=== PATIENT | female | born 1995 | race Caucasian/White ===

== ENCOUNTER → 2016-12-15 | Outpatient (CLI) | payer OTHER ==
[~2016-12-15] MED LIST: CEPH500C PO; FERR50TA3 PO; MTR600X PO; ONDA4TAB9 PO; OXYC-57 PO; PRENTAB26 PO
[2016-12-15 14:46] LABS: HEMATOCRIT 34.1 % (37-47)
[2016-12-15 15:57] LABS: URINE APPEARANCE TURBID (CLEAR); URINE BILIRUBIN NEG (NEG); URINE COLOR YELLOW; URINE EPITHELIAL CELL AUTO >30 /lpf (0-5); URINE NITRITE NEG (NEG); URINE PH 7.5 (4.5-7.5); URINE SPECIFIC GRAVITY 1.015 (1.000-1.030); UROBILINOGEN NEG (NEG)
[2016-12-15 16:02] LABS: MANUAL MICROSCOPIC REQUIRED? NO; REVIEW REQ? NO
[2016-12-18 16:44] LABS: CYTOMEGALOVIRUS IGG AB <0.91
== END | disposition home or self-care (01) ==
LOC: C.LAB1850 13:55
PROVIDERS: ATTEND Obstetrics & Gynecology
DX: O16.3 Unspecified maternal hypertension, third trimester (principal); Z3A.00 Weeks of gestation of pregnancy not specified; O09.93 Supervision of high risk pregnancy, unspecified, third trimester

== ENCOUNTER 2017-01-09 20:57 | Outpatient (CLI) | payer OTHER ==
[~2017-01-09] VITALS: Ht 162.6 cm; Wt 115.0 kg
[~2017-01-09 20:57] MED LIST changes: -CEPH500C PO; -FERR50TA3 PO; -MTR600X PO; -OXYC-57 PO; -PRENTAB26 PO
[2017-01-09 23:09] VITALS: Ht 162.6 cm; Wt 115.0 kg
== END 2017-01-09 23:05 | disposition home or self-care (01) ==
LOC: C.OPB 20:57 → C.LD 20:58 → C.OPB 23:05
PROVIDERS: ATTEND Obstetrics & Gynecology
DX: O99.89 Other specified diseases and conditions complicating pregnancy, childbirth and the puerperium (principal); R10.9 Unspecified abdominal pain; O24.410 Gestational diabetes mellitus in pregnancy, diet controlled; O99.213 Obesity complicating pregnancy, third trimester; O99.343 Other mental disorders complicating pregnancy, third trimester; F31.9 Bipolar disorder, unspecified; Z3A.32 32 weeks gestation of pregnancy

== ENCOUNTER 2017-01-18 08:47 | Emergency (ER) | payer OTHER ==
[~2017-01-18] VITALS: Ht 162.6 cm; Wt 116.4 kg
[2017-01-18 08:59] VITALS: PULSE 83; TEMP 36.6; O2SAT 97; Ht 162.6 cm; Wt 116.4 kg
[2017-01-18] MEDS ORDERED: FERR50TA3 PO (09:16)
[2017-01-18] MEDS ORDERED: PRENTAB26 PO (09:16)
[2017-01-18 09:19] LABS: BASO % 0.3 %; BASO ABS # 0.03 K/uL (0-0.2); EOS % 1.6 %; HEMATOCRIT 32.3 % (37-47); IG% 0.8 %; LYMPH % 19.9 %; LYMPH ABS # 2.31 K/uL (1.2-3.4); MEAN CELL VOLUME 74.4 fL (80-100); MEAN CORPUSCULAR HEMOGLOBIN 24.7 pg (25-34); MEAN CORPUSCULAR HGB CONC 33.1 g/dl (32-36); MEAN PLATELET VOLUME 10.4 fL (7.4-10.4); MONO % 6.6 %; NEUT % 70.8 %; PLATELET COUNT 270 K/uL (130-400); RED BLOOD COUNT 4.34 M/uL (4.2-5.4); WHITE BLOOD COUNT 11.62 K/uL (4.8-10.8)
[2017-01-18 09:33] LABS: ALT/SGPT 11 U/L (12-78); BLOOD UREA NITROGEN 7 mg/dl (7-18); BUN/CREATININE RATIO 9.9 (10-20); CALCIUM 8.3 mg/dl (8.5-10.1); CARBON DIOXIDE 21 mmol/L (21-32); CHLORIDE 107 mmol/L (98-107); GLUCOSE 141 mg/dl (70-99); POTASSIUM 3.4 mmol/L (3.5-5.1); SODIUM 140 mmol/L (136-145)
[2017-01-18 09:36] LABS: ALKALINE PHOSPHATASE 113 U/L (45-117); AST/SGOT 12 U/L (15-37)
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
[2017-01-18 09:49] LABS: COMPLETE YES; LARGE PLATELETS 1+
[2017-01-18 09:55] VITALS: BP 146/84
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
== END 2017-01-18 09:56 | disposition home or self-care (01) ==
LOC: EDBD 08:47 → C.EDB 08:48
DX: O26.93 Pregnancy related conditions, unspecified, third trimester (principal); R10.13 Epigastric pain; V43.52XA Car driver injured in collision with other type car in traffic accident, initial encounter; D64.9 Anemia, unspecified; I10 Essential (primary) hypertension; K21.9 Gastro-esophageal reflux disease without esophagitis; F31.9 Bipolar disorder, unspecified; J45.909 Unspecified asthma, uncomplicated; F41.9 Anxiety disorder, unspecified; Z87.828 Personal history of other (healed) physical injury and trauma; Z86.19 Personal history of other infectious and parasitic diseases; Z98.890 Other specified postprocedural states; Z88.0 Allergy status to penicillin; Z91.018 Allergy to other foods; Z83.3 Family history of diabetes mellitus; Z82.49 Family history of ischemic heart disease and other diseases of the circulatory system

== ENCOUNTER 2017-01-18 09:58 | Outpatient (CLI) | payer OTHER ==
[~2017-01-18] VITALS: Ht 162.6 cm; Wt 117.0 kg
[~2017-01-18 09:58] MED LIST changes: +FERR50TA3 PO; +PRENTAB26 PO
[2017-01-18 10:54] VITALS: Ht 162.6 cm; Wt 117.0 kg
[2017-01-18] MEDS ORDERED: NURSING VERBAL MED ORDER ONE (11:45)
[2017-01-18] MEDS ORDERED: ACETAMINOPHEN 325 MG TAB PO ONE (12:00)
[2017-03-08] MEDS ORDERED: OXYC-57 PO (07:54)
[2017-03-08] MEDS ORDERED: MTR600X PO (07:54)
== END 2017-01-18 16:13 | disposition home or self-care (01) ==
LOC: C.OPB 09:58 → C.LD 09:58 → C.OPB 16:13
PROVIDERS: ATTEND Obstetrics & Gynecology
DX: Z34.83 Encounter for supervision of other normal pregnancy, third trimester (principal); V43.52XA Car driver injured in collision with other type car in traffic accident, initial encounter; O24.419 Gestational diabetes mellitus in pregnancy, unspecified control; O16.3 Unspecified maternal hypertension, third trimester; Z3A.32 32 weeks gestation of pregnancy

== ENCOUNTER 2017-02-07 15:14 | Outpatient (CLI) | payer OTHER ==
[~2017-02-07 15:14] MED LIST changes: -ONDA4TAB9 PO
== END 2017-02-07 17:20 | disposition home or self-care (01) ==
LOC: C.OPB 15:14 → C.LD 15:15 → C.OPB 17:20
PROVIDERS: ATTEND Obstetrics & Gynecology
DX: O99.713 Diseases of the skin and subcutaneous tissue complicating pregnancy, third trimester (principal); L03.311 Cellulitis of abdominal wall; S31.154A Open bite of abdominal wall, left lower quadrant without penetration into peritoneal cavity, initial encounter; X58.XXXA Exposure to other specified factors, initial encounter; O24.419 Gestational diabetes mellitus in pregnancy, unspecified control; O16.3 Unspecified maternal hypertension, third trimester; Z3A.36 36 weeks gestation of pregnancy

== ENCOUNTER → 2017-02-16 | Outpatient (CLI) | payer OTHER ==
[~2017-02-16] MED LIST changes: +CEPH500C PO; +CLIN300C2 PO; +LAMO1TAB21 PO; +LMC25 PO; +MTR600X PO; +OXYC-57 PO
== END | disposition home or self-care (01) ==
LOC: C.LABSPEC 13:16
PROVIDERS: ATTEND Obstetrics & Gynecology
DX: O24.410 Gestational diabetes mellitus in pregnancy, diet controlled (principal); Z3A.00 Weeks of gestation of pregnancy not specified

== ENCOUNTER → 2017-02-26 | Outpatient (CLI) | payer OTHER ==
[2017-02-26 15:31] LABS: URINE APPEARANCE CLOUDY (CLEAR); URINE BILIRUBIN NEG (NEG); URINE COLOR YELLOW; URINE EPITHELIAL CELL AUTO >30 /lpf (0-5); URINE NITRITE NEG (NEG); URINE PH 6.5 (4.5-7.5); URINE SPECIFIC GRAVITY 1.025 (1.000-1.030); UROBILINOGEN NEG (NEG)
[2017-02-26 15:43] LABS: MANUAL MICROSCOPIC REQUIRED? NO; REVIEW REQ? NO
== END | disposition home or self-care (01) ==
LOC: C.LABSPEC 14:51
PROVIDERS: ATTEND Obstetrics & Gynecology
DX: O12.10 Gestational proteinuria, unspecified trimester (principal); Z3A.00 Weeks of gestation of pregnancy not specified

== ENCOUNTER 2017-03-01 16:18 | Outpatient (CLI) | payer OTHER ==
[~2017-03-01 16:18] MED LIST changes: -CEPH500C PO; -CLIN300C2 PO; -LAMO1TAB21 PO; -LMC25 PO; -MTR600X PO; -OXYC-57 PO
== END 2017-03-01 17:44 | disposition home or self-care (01) ==
LOC: C.OPB 16:18 → C.LD 16:27 → C.OPB 17:44
PROVIDERS: ATTEND Obstetrics & Gynecology
DX: O26.893 Other specified pregnancy related conditions, third trimester (principal); Z3A.22 22 weeks gestation of pregnancy

== ENCOUNTER 2017-03-04 15:04 | Inpatient (IN) | payer OTHER ==
[~2017-03-04] VITALS: Ht 162.6 cm; Wt 121.4 kg
[2017-03-04] MEDS ORDERED: LACTATED RINGER'S 1000ML 1,000 ML IV PRN (15:39)
[2017-03-04] MEDS ORDERED: SODIUM CHLORIDE 0.9% 1000ML 1,000 ML IV SCH (15:51)
[2017-03-04] MEDS ORDERED: DEXTROSE 50% 50 ML SYR IV PRN (16:00)
[2017-03-04 16:01] LABS: MEAN CELL VOLUME 71.6 fL (80-100); MEAN CORPUSCULAR HEMOGLOBIN 23.4 pg (25-34); MEAN CORPUSCULAR HGB CONC 32.6 g/dl (32-36); MEAN PLATELET VOLUME 10.7 fL (7.4-10.4); PLATELET COUNT 272 K/uL (130-400); RED BLOOD COUNT 4.75 M/uL (4.2-5.4); WHITE BLOOD COUNT 13.35 K/uL (4.8-10.8)
[2017-03-04 16:42] VITALS: Ht 162.6 cm; Wt 121.4 kg
[2017-03-04] MEDS ORDERED: LACTATED RINGER'S 1000ML 500 ML IV PRN ×2 (19:09→22:06)
[2017-03-04] MEDS ORDERED: OXYTOCIN 30 UNITS/500ML NSS IV PRN (19:15)
[2017-03-04] MEDS: LACTATED RINGER'S 1000ML 1,000 ML IV SCH ×2 (19:22→21:35)
[2017-03-04] MEDS: DEXTROSE 5% 1000ML 1,000 ML IV SCH (19:22)
[2017-03-04] MEDS: INSULIN REGULAR 250 UNITS in SODIUM CHLORIDE 0.9% 250ML 250 ML IV SCH ×2 (19:30→20:29)
[2017-03-04] MEDS ORDERED: FENTANYL 2MCG/ML ROPIV 1.25MG/ML 100ML BAG EPI ONE (20:57)
[2017-03-04] MEDS ORDERED: BUPIVACAINE 0.25% 30 ML VIAL ONE (20:57)
[2017-03-04] MEDS ORDERED: EpHEDrine SULFATE INJ 50 MG/ML AMP ONE (20:57)
[2017-03-04] MEDS ORDERED: FENTANYL CITRATE INJ 50 MCG/1 ML 2 ML VIAL ONE (20:58)
[2017-03-04] MEDS ORDERED: NALOXONE HCL INJ 1 MG in SODIUM CHLORIDE 0.9% 1000ML 1,000 ML IV PRN (22:06)
[2017-03-04] MEDS ORDERED: NALOXONE HCL INJ 0.4 MG/1 ML VIAL/CARP IV PRN (22:15)
[2017-03-04] MEDS ORDERED: NALBUPHINE HCL INJ 10 MG/ML AMP IV PRN (22:15)
[2017-03-04] MEDS ORDERED: ONDANSETRON INJ 2 MG/ML 2 ML VIAL IV PRN (22:15)
[2017-03-04] MEDS ORDERED: DiphenhydrAMINE HCL 50 MG/ML VIAL IV PRN (22:15)
[2017-03-04] MEDS ORDERED: PROMETHAZINE HCL INJ 6.25 MG in SODIUM CHLORIDE 0.9% 50ML 50 ML IV PRN (22:15)
[2017-03-04] MEDS ORDERED: EpHEDrine SULFATE INJ 50 MG/ML AMP IV PRN (22:15)
[2017-03-05] VITALS (7 sets, daily range): BP systolic 116–136; BP diastolic 60–83; PULSE 79–89; TEMP 36.7–37; O2SAT 96–98
[2017-03-05] MEDS: LACTATED RINGER'S 1000ML 1,000 ML IV SCH ×2 (01:59→07:05)
[2017-03-05] MEDS: DEXTROSE 5% 1000ML 1,000 ML IV SCH (05:07)
[2017-03-05] MEDS: FENTANYL 2MCG/ML ROPIV 1.25MG/ML 100ML BAG EPI PRN ×2 (06:23→07:06)
[2017-03-05] MEDS ORDERED: BUPIVACAINE 0.25% 30 ML VIAL ONE (11:45)
[2017-03-05] MEDS ORDERED: FENTANYL CITRATE INJ 50 MCG/1 ML 2 ML VIAL ONE (11:49)
[2017-03-05] MEDS ORDERED: LACTATED RINGER'S 1000ML 1,000 ML IV SCH (12:56)
[2017-03-05] MEDS ORDERED: CITRIC ACID/SODIUM CITRATE 15 ML UDC PO ONE (13:00)
[2017-03-05] MEDS ORDERED: CITRIC ACID/SODIUM CITRATE 15 ML UDC ONE (13:03)
[2017-03-05] MEDS ORDERED: CLINDAMYCIN IV 900 MG in DEXTROSE 5% ADD-VANTAGE 100ML 100 ML IV SCH (13:15)
--- NOTE | 2017-03-05 13:46 | HISTORY & PHYSICAL EXAMINATION ---
DATE OF ADMISSION: 03/04/2017 PREOPERATIVE DIAGNOSES: 1. Intrauterine at 39 and 6/7 weeks. 2. Insulin requiring gestational diabetes. 3. Chronic hypertension. 4. Morbid obesity. HISTORY OF PRESENT ILLNESS: The patient is a 21-year-old 2, para 1-0-0-1 with an EDC of 03/06/2017 who presented to labor and delivery for a reassuring, but nonreactive NST at 39 and 5/7 weeks. When she presented to labor and delivery, it was decided that we would proceed with induction of labor. She notes good movement, no contractions, no leakage of fluid, no vaginal bleeding. She denies signs and symptoms of preeclampsia. The has been complicated by insulin controlled gestational diabetes. She has had fairly good control. Last ultrasound at 36 weeks showed a baby that is approximately 7 pounds 2 ounces. Estimated weight 63rd percentile. AC I believe was 59th percentile. She also has chronic hypertension for which she is on no medications. Testing has been reassuring. The patient was admitted. She underwent a Carrion bulb for cervical ripening and then progressed with Pitocin augmentation. The following morning at 6:00 a.m. she was 6 cm dilated and still quite high, but she was ruptured nonetheless for clear fluid. Baby's strip had been category 1 up until that point but after rupture of membranes the patient had variables/early decels with most contractions. She continued to keep moderate variability and had positive scalp stim. The Pitocin had been turned off after the rupture of membranes and the variables, but with be reassuring category 2 strip the Pitocin was restarted. Unfortunately, every time we would get to any kind of significant contraction in the 40-50 MVU range the baby had more deep variables. When we got to MVU's of approximately 140-150 at Pitocin of 4 the baby started to have deep variables to the 60s with more prolonged return to baseline. The patient had an FSE placed and IUPC placed at 8:00 a.m. in the morning when I took over the care of the patient and she did make slow progression but really the baby did not descend into the pelvis past a -3 station. For the last 2 hours plus, she remained a rim and -3 station. When the Pitocin is off the heart tones returned to the 130s-140s with moderate variability, small accels, but when we get a spontaneous contraction that is more than about 30 MVUs we have variable. 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 This was a vaginal delivery but was complicated by pretty severe shoulder dystocia. The baby was 7 pounds 9 ounces at delivery. Shoulder dystocia was resolved with suprapubic then Ceasar and lying the patient flat. I was at that delivery, as it happened, and I tried to reduce and do some screw maneuvers, but was unable to get my hand into the vagina because of the long and tight space of the vagina. This baby is likely bigger than that baby. She has had no abnormal Pap smears and no sexually transmitted diseases. ALLERGIES: PENICILLIN CAUSES HIVES AND SWELLING. MEDICATIONS: Insulin, vitamins and iron. PAST MEDICAL HISTORY: The patient has chronic hypertension on no meds, past history of gestational diabetes, history of bipolar disorder, not on current meds, history of anemia, history of mild asthma, chickenpox. PAST SURGICAL HISTORY: The patient had kidney surgery at age 3 on her left kidney, tonsillectomy, wisdom teeth. SOCIAL HISTORY: The patient denies tobacco, alcohol or drug use. She lives with the father of the baby and her daughter. This baby is a boy. PHYSICAL EXAMINATION: GENERAL: This is a well-developed, well-nourished, obese white female. She is comfortable lying in the bed with her epidural. VITAL SIGNS: Her blood pressures have been running 130s to 140s/80s. Her weight is 267 pounds. NECK: Supple without thyromegaly or lymphadenopathy. CHEST: Clear to auscultation bilaterally. CARDIOVASCULAR: Regular rate and rhythm. ABDOMEN: Obese and gravid. She has a fairly large pannus. There is an incision on the left flank. There is an erythematous but bite on her left lower quadrant. EXTREMITIES: Show trace to +1 edema. CERVIX EXAMINATION: She is rim, 100%, -3 station. Tocodynamometer shows her marcelino spontaneously every 2-3 minutes. EFM baby is in the 140s with moderate variability, small accels, variable decels with some of the larger contractions based on IUPC now. Baby has always had scalp stim. ASSESSMENT: This is a 21-year-old 2, para 1-0-0-1 at 39-6/7 weeks who is being induced for chronic hypertension and insulin requiring gestational diabetes. She has progressed slowly to a rim, but over the last 2 hours has not been able to reduce the rim. The station has not progressed past -3. Every time we tried to augment contractions with Pitocin the baby has variables that deepen as we get closer and closer to attempting adequate labor. Therefore, I do not know that I am going to be able to get her adequate in order to call her technically failure to progress. However, I am very concerned that this baby has not descended in really the 7 hours that I have been monitoring the baby. The baby continues to have a category 2 strip, but is very reassuring with moderate variability and positive scalp stim. I discussed the options with Cheko and her which would include trying Pitocin again with knowing that if the baby does not tolerate labor this time we would proceed with section, also realizing that if the baby had a terminal bradycardia she would be a very difficult stat given her size. We could proceed with delivery, right now for what I likely suspect is failure to progress. I do suspect this baby is probably on the 8-9 pounds size. Given the history of the shoulder dystocia and difficult delivering a 7 pound 9 ounce baby I have concern that this baby is likely too big to fit out of the pelvis and all of this is a response of the baby and the lack of descent in the pelvis are signed that this is what is going on and that we could now while the baby is still reassuring and we could do it under controlled situation. After discussing the risks, benefits and side effects of all of these, they have decided to proceed with a controlled section delivery. I agree with this course of action. The risks of the surgery were discussed with the patient including risk of anesthesia, bleeding requiring transfusion, infection, poor wound healing, damage to surrounding structures including bowel, bladder, vessels, nerves and ureters with need for further surgery, hospitalization or intervention. Discussed the possibility of injury to baby. Discussed the other options of surgery including heart attack, blood clot, stroke or . Consent was reviewed and signed. Questions were asked and answered and will proceed with section. JESENIA
[2017-03-05] MEDS ORDERED: ONDANSETRON INJ 2 MG/ML 2 ML VIAL ONE (13:49)
[2017-03-05] MEDS ORDERED: LIDOCAINE/EPINEPHRINE 2% 1:200,000 20 ML SDV ONE (13:49)
[2017-03-05] MEDS ORDERED: OXYTOCIN INJ 10 UNITS/ML VIAL ONE ×2 (13:49→13:57)
[2017-03-05] MEDS ORDERED: PHENYLEPHRINE 100MCG/ML 5ML SYR ONE (13:50)
[2017-03-05] MEDS ORDERED: MISOPROSTOL 200 MCG TAB ONE (14:02)
[2017-03-05] MEDS ORDERED: MoRPHine SULFATE PF 1 MG/ML 10 ML AMP/VIAL ONE (14:11)
--- NOTE | 2017-03-05 14:28 | [facility] Post Operative Brief Note ---
Immediate Operative Summary Operative Date March 05, 2017. Pre-Operative Diagnosis 39+ wks intrauterine , insulin controlled gestational diabetes mellitus, gestational HTN, failure to progress, arrest of descent Post-Operative Diagnosis 39+ wks intrauterine , insulin controlled gestational diabetes mellitusgestational HTN, failure to progress, arrest of descent Procedure(s) Performed Primary low transverse caesarean section via a vertical skin incision for failure to progress, arrest of descent for living male child at [address] Watson Criminalist Surgeon(s) Dr. Buenrostro Estimated Blood Loss 900ml Findings Delivered a viable male infant, APGARS 9,9. Weight 9 lbs 0oz. Normal uterus, fallopian tubes and ovaries bilaterally Specimens Placenta-hold arterial and venous cord gases cord blood Drains perez to gravity Anesthesia spinal Complication(s) None Disposition L&D
[2017-03-05] MEDS ORDERED: LANOLIN OINT EXT PRN ×2 (14:30)
[2017-03-05] MEDS ORDERED: BENZOCAINE 20% AER SPR 82.5 GM CAN EXT PRN (14:30)
[2017-03-05] MEDS ORDERED: SENNA 8.6 MG TAB PO PRN (14:30)
[2017-03-05] MEDS ORDERED: DIPHTHERIA/TETANUS/PERTUSSIS 0.5 ML SYR/VIAL IM. ONE (14:30)
[2017-03-05] MEDS ORDERED: SUPERCREAM 0.870 % 15GM JAR EXT PRN (14:30)
[2017-03-05] MEDS ORDERED: HYDROCORTISONE ACETATE 25 MG SUPP PR PRN (14:30)
--- NOTE | 2017-03-05 14:40 | Anesthesiology Progress Note ---
Anesthesia Post Op Note Date & Time March 05, 2017 at 14:40 Vital Signs Pain Intensity: 10.0 Notes Mental Status: alert / awake / arousable, participated in evaluation Pt Amnestic to Procedure: Yes Nausea / Vomiting: adequately controlled Pain: adequately controlled Airway Patency, RR, SpO2: stable & adequate BP & HR: stable & adequate Hydration State: stable & adequate Neuraxial Anesthesia: was administered, sensory block is resolving Anesthetic Complications: no major complications apparent
--- NOTE | 2017-03-05 14:40 | Anesthesia Procedure Note ---
Anesthesia Epidural Removal Nt Date & Time March 05, 2017 at 14:40 Vital Signs Pain Intensity: 10.0 Notes Mental Status: alert / awake / arousable, participated in evaluation Nausea / Vomiting: adequately controlled Pain: adequately controlled Airway Patency, RR, SpO2: stable & adequate BP & HR: stable & adequate Hydration State: stable & adequate Neuraxial Anesthesia: was administered Anesthetic Complications: no major complications apparent, pt satisfied with anesthetic care Epidural: removed without complications, with tip intact
[2017-03-05] MEDS ORDERED: SODIUM CHLORIDE 0.9% 1000ML 1,000 ML IV PRN (14:41)
[2017-03-05] MEDS ORDERED: NALOXONE HCL INJ 1 MG in SODIUM CHLORIDE 0.9% 1000ML 1,000 ML IV PRN (14:41)
[2017-03-05] MEDS ORDERED: NALOXONE HCL INJ 0.08 MG in SYRINGE 1.8 ML IV PRN (14:41)
[2017-03-05] MEDS ORDERED: LACTATED RINGER'S 1000ML 500 ML IV PRN (14:41)
[2017-03-05] MEDS ORDERED: NALOXONE HCL 0.4 MG/1 ML VIAL/CARP IV PRN (14:45)
[2017-03-05] MEDS ORDERED: ONDANSETRON INJ 2 MG/ML 2 ML VIAL IV PRN (14:45)
[2017-03-05] MEDS ORDERED: KETOROLAC TROMETHAMINE 30 MG/ML VIAL IV. PRN (14:45)
[2017-03-05] MEDS ORDERED: PROMETHAZINE HCL INJ 12.5 MG in SODIUM CHLORIDE 0.9% 50ML 50 ML IV PRN (14:45)
[2017-03-05] MEDS ORDERED: MoRPHine SULFATE PF 1 MG/ML 10 ML AMP/VIAL EPI ONE (14:45)
[2017-03-05] MEDS ORDERED: NO NARCOTICS OR SEDATIVES SCH (14:45)
[2017-03-05] MEDS ORDERED: EpHEDrine SULFATE INJ 50 MG/ML AMP IV PRN (14:45)
[2017-03-05] MEDS ORDERED: MEPERIDINE HCL 25 MG/ML CARP IV PRN (14:45)
[2017-03-05] MEDS ORDERED: MoRPHine SULFATE 2 MG/ML CARP IV PRN (14:45)
[2017-03-05] MEDS ORDERED: DiphenhydrAMINE HCL 50 MG/ML VIAL IV PRN (14:45)
[2017-03-05] MEDS ORDERED: NALBUPHINE HCL INJ 10 MG/ML AMP IV PRN (14:45)
--- NOTE | 2017-03-05 16:32 | OPERATIVE REPORT ---
DATE OF OPERATION: 03/05/2017 PREOPERATIVE DIAGNOSES: 1. Intrauterine at 39 and 6/7 weeks. 2. Insulin requiring gestational diabetes. 3. Chronic hypertension. 4. Failure to progress and descend. POSTOPERATIVE DIAGNOSES: Same. PROCEDURE: Primary low transverse section via vertical midline incision. SURGEON: Dr. Watson. ELECTRICAL MACHINE BUILDER: Valencia Buenrostro DO, and Larry Tse, PGY1. ANESTHESIA: Epidural. ESTIMATED BLOOD LOSS: 900 mL. FLUIDS: 1200 mL. URINE OUTPUT: 200 mL of red-tinged urine draining from the bladder at the end of the procedure. INDICATIONS: Cheko is a 2, para 1-0-0-1 who presented to labor and delivery at 39 and 5/7 weeks with a reassuring, but nonreactive NST. Decision was made to induce this patient. She underwent a Carrion bulb and progressed to 6 with Pitocin augmentation, had an amniotomy. The baby started having variables after amniotomy with contractions, but continued to have adequate moderate variability and positive scalp stim. She had an IUPC and a FSE placed and she very slowly progressed to rim and -3 station. The baby really never descended into the pelvis past -3 station. She was rim for 2 hours. Every time we tried to get the Pitocin up to adequate contractions the fetus had deep variables to the 60s. Given the lack of descent and the lack of progress over the last 2 hours of evaluation, I was concerned that the baby was not going to fit through the pelvis given she had an issue delivering a 7 pound, 9 ounce baby in her last delivery. Therefore, I discussed the possibility of delivery and she decided to proceed. FINDINGS: Viable male infant in right occiput posterior presentation. There was significant caput. There was a nuchal cord x1. The cord itself was somewhat short. Apgars were 9 and 9. Weight was 9 pounds. Uterus, tubes, and ovaries were normal bilaterally. COMPLICATIONS: None. DRAINS: Carrion. DISPOSITION: To recovery room in stable condition. DESCRIPTION OF PROCEDURE: The patient was taken to the operating room where she was identified verbally and by bracelet. She was placed in the dorsal supine position with a leftward tilt on the operating table. A Carrion catheter had been placed previously. Her epidural was dosed. She was prepped and draped in normal sterile fashion. Her anesthetic was tested and found to be adequate. A timeout was held identifying correct patient and procedure, preoperative antibiotic. A vertical midline incision was made with a knife just below the umbilicus. This was taken down to the fascia with Bovie electrocautery. Bleeding was attended to with Bovie electrocautery. The fascia was incised in the midline and taken superiorly and inferiorly with good visualization of the bladder. The muscles already had some partial separation in the midline. The peritoneum was identified and entered bluntly. The incision was taken superiorly and inferiorly with good visualization of the bladder. The incision was stretched. An Esteban self-retaining retractor was placed into the incision. The bladder flap was created by grasping the vesicouterine peritoneum, entering with scissors and taking out laterally. A hysterotomy incision was scored with the knife. It was entered with a snap. The incision was stretched with the wood grinder operator's fingers. The head was then delivered atraumatically through the hysterotomy incision. The nose and mouth were bulb suctioned. There was a nuchal cord x1. The rest of the baby was then delivered without difficulty. The nose and mouth were again bulb suctioned. The cord was clamped and cut and the infant was handed off to waiting oil and gas superintendent for drying and attention. Cord blood and segment were obtained. The placenta was expressed. Uterus was manually cleared of debris with a moistened laparotomy sponge. The hysterotomy incision was identified, was clamped and it was reapproximated, we first started on the left side coming to the midline and then started on the right, left and right apex returning to the midline. A second imbricating layer was then placed. Two [id number] sutures were needed on the left side for hemostasis and then hemostasis was noted to be pretty good. The uterus was reanteriorized. The incision was then again inspected and really found to be hemostatic. Some Gelfoam was placed over on the left side of the incision as it was slightly oozy in that area, but there were no obvious bleeders. The fascia was then reapproximated in the midline with #1 PDS starting cephalad and caudad and meeting in the middle. Subcuticular tissue was irrigated with warm normal saline. The subcuticular tissue was reapproximated with 2-0 plain gut horizontal mattress sutures. The skin was then closed with dale. All sponge, lap and needle counts were correct x2. The patient tolerated the procedure well. She was taken to the recovery room in stable condition. She was transferred to the bed. Her uterus was expressed of some clot but was then found to be firm. I attest to the content of the Intraoperative Record and any orders documented therein. Any exceptions are noted below. MTDD
[2017-03-05] MEDS: OXYTOCIN INJ 20 UNITS in LACTATED RINGER'S 1000ML 1,000 ML IV SCH (17:33)
[2017-03-05] MEDS: DOCUSATE SODIUM 100 MG CAP PO SCH (19:58)
[2017-03-06] VITALS (12 sets, daily range): BP systolic 121–143; BP diastolic 80–86; PULSE 78–103; TEMP 36.6–36.9; O2SAT 18–98
[2017-03-06] MEDS: OXYTOCIN INJ 20 UNITS in LACTATED RINGER'S 1000ML 1,000 ML IV SCH (02:00)
--- NOTE | 2017-03-06 07:16 | Progress Note ---
Subjective March 06, 2017. Subjective conversation w/ patient, physical exam, chart review, lab review Voiding: perez catheter in place Diet Tolerance: Regular Diet Lochia: Moderate Objective Vital Signs Date Time Temp Pulse Resp B/P Pulse Ox O2 Delivery O2 Flow Rate FiO2 03/06/17 06:27 18 97 03/06/17 05:30 18 96 03/06/17 04:30 16 98 03/06/17 03:45 36.9 78 18 121/80 96 Room Air 03/06/17 03:30 16 96 03/06/17 02:30 18 94 03/06/17 01:30 18 96 03/06/17 00:30 18 96 03/05/17 23:30 36.8 18 124/83 96 Room Air 03/05/17 23:30 96 Room Air 03/05/17 23:30 18 96 03/05/17 22:00 20 97 03/05/17 21:00 20 97 03/05/17 20:20 37.0 89 20 136/83 Room Air 03/05/17 20:00 20 98 03/05/17 19:00 79 20 116/81 97 Room Air 03/05/17 19:00 20 97 03/05/17 18:00 36.7 79 16 122/60 96 Room Air 03/05/17 18:00 16 97 03/05/17 18:00 Room Air Physical Exam General Appearance: WELL-APPEARING Abdomen: non tender Fundus: Firm Extremities: no calf tenderness Laboratory Results Last 24 Hours Test 03/05/17 07:36 03/05/17 08:33 03/05/17 10:37 03/05/17 11:19 Bedside Glucose 93 mg/dl 94 mg/dl 76 mg/dl 74 mg/dl Test 03/05/17 11:36 03/05/17 12:36 03/06/17 06:20 Bedside Glucose 76 mg/dl 79 mg/dl Assessment and Plan Post-Op Day#: 1 Continue Routine Care: Feels well. Ambulate, remove perez. Switch to PO pain meds. Cont current care. BLANCA
[2017-03-06] MEDS ORDERED: DiphenhydrAMINE HCL 50 MG/ML VIAL IV PRN (07:45)
[2017-03-06] MEDS ORDERED: DC INTRASPINAL MORPHINE SCH (07:45)
[2017-03-06] MEDS ORDERED: ONDANSETRON INJ 2 MG/ML 2 ML VIAL IV PRN (07:46)
[2017-03-06] MEDS ORDERED: KETOROLAC TROMETHAMINE 30 MG/ML VIAL IV. PRN (07:46)
[2017-03-06] MEDS ORDERED: OXYCODONE/ACETAMINOPHEN 5-325 TAB PO PRN (07:46)
[2017-03-06] MEDS: PRENATAL VITAMIN TAB PO SCH (07:59)
[2017-03-06] MEDS: DOCUSATE SODIUM 100 MG CAP PO SCH ×2 (07:59→20:27)
[2017-03-06] MEDS: FERROUS SULFATE 325 MG TAB PO SCH (08:00)
[2017-03-06] MEDS ORDERED: PRENATAL VITAMIN TAB PO SCH (08:00)
[2017-03-06] MEDS ORDERED: FERROUS SULFATE 325 MG TAB PO SCH (08:00)
[2017-03-06 08:02] LABS: HEMATOCRIT 21.2 % (37-47); MEAN CELL VOLUME 72.6 fL (80-100); MEAN PLATELET VOLUME 11.1 fL (7.4-10.4); PLATELET COUNT 241 K/uL (130-400); RED BLOOD COUNT 2.92 M/uL (4.2-5.4); WHITE BLOOD COUNT 19.36 K/uL (4.8-10.8)
[2017-03-06 08:09] LABS: BASO % 0.2 %; BASO ABS # 0.03 K/uL (0-0.2); COMPLETE YES; EOS % 0.3 %; IG% 0.4 %; LYMPH % 18.8 %; LYMPH ABS # 3.64 K/uL (1.2-3.4); MONO % 8.8 %; NEUT % 71.5 %
[2017-03-06] MEDS: IBUPROFEN 600 MG TAB PO PRN ×2 (13:14→18:19)
[2017-03-06] MEDS: OXYCODONE/ACETAMINOPHEN 5-325 TAB PO PRN (19:05)
[2017-03-06] MEDS ORDERED: BISACODYL 5 MG TABEC PO ONE (22:00)
[2017-03-07] MEDS: IBUPROFEN 600 MG TAB PO PRN ×5 (00:21→21:04)
[2017-03-07] MEDS: OXYCODONE/ACETAMINOPHEN 5-325 TAB PO PRN ×2 (04:45→17:27)
[2017-03-07 06:58] VITALS: BP 128/83; PULSE 76; TEMP 36.7
[2017-03-07 07:17] LABS: HEMATOCRIT 20.1 % (37-47)
--- NOTE | 2017-03-07 07:47 | Progress Note ---
Subjective March 07, 2017. Subjective conversation w/ patient, physical exam, lab review Ambulation: ambulating normally Voiding: no voiding problems Passing Gas: Yes Diet Tolerance: Regular Diet Lochia: Small Feeding Type: Bottle Feeding Pain: CONTROLLED WITH ORAL PAIN MEDS Comment: OTHER THAN FEELING TIRED, THE PATIENT FEELS WELL. PAIN CONTROLLED. TOOK A SHOWER WITHOUT INCIDENT. NOTES NO LIGHTHEADEDNESS OR DIZZINESS WITH STANDING OR WALKING. Objective Vital Signs Date Time Temp Pulse Resp B/P Pulse Ox O2 Delivery O2 Flow Rate FiO2 03/07/17 06:58 36.7 76 20 128/83 Room Air 03/06/17 23:30 36.8 97 20 143/80 96 Room Air 03/06/17 23:30 96 Room Air 03/06/17 15:30 36.6 103 20 137/86 Room Air 03/06/17 15:30 Room Air 03/06/17 13:00 Room Air 03/06/17 13:00 36.8 102 18 127/82 Room Air 03/06/17 07:45 95 Room Air 03/06/17 07:45 36.9 96 18 129/82 Room Air 03/06/17 07:45 18 95 Physical Exam General Appearance: WELL-APPEARING, WD/WN, NO APPARENT DISTRESS Respiratory/Chest: lungs clear, normal breath sounds Cardiovascular: regular rate, rhythm Abdomen: normal bowel sounds, soft, + tenderness (APPROPRIATE FOR POST OP) Fundus: Firm, Tender (APPROPRIATE FOR POSTOP ), Relation to Umbilicus (ABOUT AT U, DIFFICULT EXAM.) Incision Description: Clean, Dry & Intact (SLIGHT BRUISING AT THE CAUDAD EDGE) Extremities: non-tender, no pedal edema Laboratory Results Last 24 Hours Test 03/07/17 06:17 Hemoglobin 6.3 g/dL Hematocrit 20.1 % Assessment and Plan Post-Op Day#: 2 Continue Routine Care: DOING VERY WELL. WILL HOLD OFF ON TRANSFUSION FOR NOW SHE IS ASYMPTOMATIC FROM HER HGB OF 6.3. IF SHE BECOMES SYMPTOMATIC TODAY, WILL HAVE TO CONSIDER. DISCUSSED IN DETAIL WITH THE PATIENT.
[2017-03-07] MEDS: PRENATAL VITAMIN TAB PO SCH (08:02)
[2017-03-07] MEDS: DOCUSATE SODIUM 100 MG CAP PO SCH ×2 (08:02→20:03)
[2017-03-07] MEDS: FERROUS SULFATE 325 MG TAB PO SCH (08:02)
[2017-03-07 15:30] VITALS: BP 148/84; PULSE 90; TEMP 36.8
[2017-03-07 19:00] VITALS: BP 139/87; PULSE 99; TEMP 36.7
[2017-03-07 23:20] VITALS: BP 149/87; PULSE 88; TEMP 36.5; O2SAT 99
[2017-03-08] MEDS: IBUPROFEN 600 MG TAB PO PRN ×2 (01:46→07:10)
--- NOTE | 2017-03-08 06:55 | Progress Note ---
Subjective March 08, 2017. Subjective conversation w/ patient, physical exam, lab review Ambulation: ambulating normally Voiding: no voiding problems Passing Gas: Yes Diet Tolerance: Regular Diet Lochia: Moderate Feeding Type: Bottle Feeding Pain: improves with pain medication Comment: Patient was seen at the bedside. No acute event overnight. Review of Systems Constitutional: No fever Respiratory: No cough, No shortness of breath Cardiac: No chest pain Breast: No breast lump Abdomen: No nausea, No pain, No vomiting Female : No dysuria, No urinary frequency Denies headache or dizziness. Patient states that she was able to walk around without any problems. Objective Vital Signs Date Time Temp Pulse Resp B/P Pulse Ox O2 Delivery O2 Flow Rate FiO2 03/07/17 23:20 99 Room Air 03/07/17 23:20 36.5 88 20 149/87 99 Room Air 03/07/17 19:00 36.7 99 20 139/87 Room Air 03/07/17 15:30 Room Air 03/07/17 15:30 36.8 90 20 148/84 Room Air 03/07/17 08:00 Room Air 03/07/17 06:58 36.7 76 20 128/83 Room Air Physical Exam General Appearance: WELL-APPEARING, WD/WN, NO APPARENT DISTRESS, obese Respiratory/Chest: chest non-tender, lungs clear, normal breath sounds, no respiratory distress Cardiovascular: regular rate, rhythm Abdomen: normal bowel sounds, non tender, soft Fundus: Firm, Tender (appropariate for postop), Relation to Umbilicus (at the U , difficult to assess) Extremities: non-tender, no calf tenderness, + pedal edema (trace b/l lower ext ) Medications Current Inpatient Medications Medications (Trade) Dose Ordered Sig/Vince Route Start Time Stop Time Status Last Admin Dose Admin Prenat Multivit/ [place]/Iron/Folic Ac ( Vitamin Tab) 1 tab DAILY PO 03/06/17 08:00 04/05/17 07:59 03/07/17 08:02 1 TAB Ketorolac Tromethamine (Toradol Inj) 30 mg Q6H PRN IV. 03/06/17 07:46 03/10/17 14:29 Oxycodone/ Acetaminophen (Percocet 5-325mg Tab) 1 tab Q4H PRN PO 03/06/17 07:46 03/20/17 07:45 03/07/17 17:27 1 TAB Oxycodone/ Acetaminophen (Percocet 5-325mg Tab) 2 tab Q4H PRN PO 03/06/17 07:46 03/20/17 07:45 Ibuprofen (Motrin Tab) 600 mg Q4H PRN PO 03/05/17 14:30 04/04/17 14:29 03/08/17 01:46 600 MG Ondansetron HCl (Zofran Inj) 4 mg Q4H PRN IV 03/06/17 07:46 04/05/17 07:45 Docusate Sodium (coLACE CAP) 100 mg BID PO 03/05/17 20:00 04/04/17 19:59 03/07/17 20:03 100 MG Cocaine HCl (Supercream 0.870% Cr) BID PRN EXT 03/05/17 14:30 03/19/17 14:29 Lanolin (Lanolin Oint) PRN PRN EXT 03/05/17 14:30 04/04/17 14:29 Hydrocortisone Acetate (Anusol Hc Supp) 25 mg BID PRN [place] 03/05/17 14:30 04/04/17 14:29 Benzocaine (Dermoplast Aero Spr) 1 appln PRN PRN EXT 03/05/17 14:30 04/04/17 14:29 Diphenhydramine HCl (Benadryl Cap) 25 mg QID PRN PO 03/06/17 07:46 04/05/17 07:45 Diphenhydramine HCl (Benadryl Inj) 25 mg QID PRN IV 03/06/17 07:45 04/05/17 07:44 Senna (Senokot Tab) 17.2 mg HS PRN PO 03/05/17 14:30 04/04/17 14:29 03/07/17 20:03 17.2 MG Ferrous Sulfate (Feosol Tab) 325 mg DAILY PO 03/06/17 08:00 04/05/17 07:59 03/07/17 08:02 325 MG Assessment and Plan Post-Op Day#: 3 Continue Routine Care: A/P: This is a 21 y/o female, , s/p . She is ambulating and clinically stable to discharge. Hgb is low; however, patient is asymptomatic. Follow up in clinic in 4 days for dale removal and BP checkup. - Vital signs are reviewed, Tmax 36.7 and BP 149/87 - Last Hgb 6.3 - Blood type A+, GBS neg, Rubella Immune - No signs of depression. - Routine care - Discussed resting, feeding, pain control, mastitis, control, follow up in 6 weeks and reasons to call sooner, if necessary. - Continue with pain medication as needed, and continue vitamins. - Encourage breast feeding and educate about breast feeding - Patient understands and keen for home. - Plan to discharge home Resident Physician Supervision Note: I interviewed and examined the patient. Discussed with Dr. Tse and agree with findings and plan as documented in the note. Any exceptions or clarifications are listed here: Patient is asymptomatic from her h/h. Plan d/c home. Precautions given. Return to the office on Wednesday for staple removal. Documented By: Marina Watson
--- NOTE | 2017-03-08 06:57 | Discharge Instructions ---
Discharge Instructions Date of Service March 08, 2017. Admission Reason for Admission: Heart Rate Nonreactive Discharge Discharge Diagnosis / Problem: s/p Discharge Goals Goal(s): Routine recovery after Medications Continue Dispensed Medications: supercream, dermaplast, tucks, lansinoh Activity Recommendations Activity Limitations: as noted below . Instructions / Follow-Up Instructions / Follow-Up ACTIVITY RECOMMENDATIONS: * Gradual return to full activity over the next 2-3 weeks. * No lifting - nothing heavier than baby over the next 2-3 weeks. * Do not engage in vigorous exercise, sexual activity or sports until cleared by your physician. * Do not drive or operate any motorized equipment until cleared by your physician. * You may shower/bathe daily. MEDICATIONS: For discomfort or pain, you may use Acetaminophen (Tylenol), Ibuprofen (Advil), or Naproxen (Aleve) following the package directions. For constipation you may use Colace following the package directions. BREAST CARE: If you are not breast feeding: * Wear a supportive bra 24 hours a day for one to two weeks. * Avoid stimulating your breasts and nipples as much as possible during the first few weeks after delivery. * When taking a shower, have the warm water hit your back, not breasts. * When your breasts feel full, apply ice packs. Usually three to four times a day helps ease the discomfort. * Take a mild pain medication (Tylenol / Motrin) when you are uncomfortable. If breast feeding: * Use breast milk to lubricate nipples. Lansinoh cream may be used for sore nipples. You do not need to remove cream prior to breast feeding. If using a different brand of cream, check the label for directions regarding removal of cream prior to nursing. * Wear a supportive bra. * If having problems with breasts or breast feeding, call a [employer] consultant or your health care provider. SPECIAL CARE INSTRUCTIONS: When you are discharged from the hospital, it is important for you to follow the instructions listed below: * During the first week at home, you should be able to care for yourself and your baby. In addition, the usual light household activities are encouraged. * Limit your activities to the way you feel. Do not try to clean the house or move furniture. Be sensible. * If you actively engage in sports and have done so up until the time of your delivery, you may resume these activities as soon as you feel able. This may take up to one month or even longer. Use good judgment. * Continue to take your vitamins for at least six weeks after the of your baby. * Your diet need not be limited unless you were on a special diet before your delivery. Breast-feeding mothers need around 2500 calories per day and at least 64-80 ounces of fluid per day (8 to 10 glasses). * You should eat foods from the four major food groups. Crash diets or fad diets are to be avoided. Eating lean meats, fresh fruits and vegetables, low-fat dairy products, high fiber foods and a regular exercise program, will help you get back to your pre- weight without putting your health at risk. * Constipation is sometimes a problem after delivery. Take a mild laxative as needed. If breast feeding, Milk of Magnesia is acceptable to use. You may use a suppository or Fleets enema. * A daily shower or tub bath is suggested. Wash incision daily with warm soapy water and pat dry. It doesn't need to be covered unless drainage is present. * A bloody vaginal discharge will usually continue until around four weeks . A small amount of bleeding may continue for as long as six weeks. Vaginal discharge changes from the bright red bleeding after delivery to pink then brownish and finally yellowish-pink before becoming white and disappearing. * Bleeding may increase with activity. Your first period may come in 4-8 weeks. If you are breast feeding, your period may be delayed even longer. * [place] (sex) can begin whenever both you and your partner feel comfortable and do not have any form of genital infection. It is recommended that you wait at least six weeks for internal and external healing to occur. If you have questions, please talk to your health care practitioner. A condom should be used to prevent infection and . * Foreplay, gentle intercourse and lubrication is very important the first several times to prevent pain. A water-based lubricant such as K-Y jelly or Astroglide may be used. * If you have RH negative blood and your baby is RH positive, you will receive RHOGAM by injection prior to discharge. The nurse will give you a card to keep with you that has the date and place that you received RHOGAM after delivery. * During your care, you had a Rubella screen done to check for the presence of rubella antibodies in your blood. If your test was negative, you will receive a Rubella vaccine prior to discharge. This vaccine may cause a fever, soreness at the injection site and flu-like symptoms. If these symptoms persist, notify your health care practitioner. is not advised for one month after a Rubella vaccine. * Verbalizes understanding of car seat law as reviewed with patient nursing. * Car Seat hand-out given and reviewed with patient by nursing. * Shaken baby information reviewed with patient by nursing. Call you doctor if: * Heavy bleeding (saturating several pads an hour) or passing clots the size of your fist. * A fever >101 degrees F (38.3 degrees C) on two occasions four hours apart and /or chills. * Unusual pain in the pelvic or vaginal areas. * Call the doctor for any increased redness, drainage or swelling around the incision and any pain unrelieved by prescribed pain medication. * "Baby Blues" lasting longer than two weeks. If you have any questions or concerns, call your health care practitioner at . FOLLOW UP VISIT: * Please call the office at to schedule a 6 week examination. It is important you keep this appointment. It is important for you to make arrangements for either yearly or twice yearly check-ups thereafter. Current Hospital Diet Patient's current hospital diet: Regular OB Diet Discharge Diet Recommended Diet: Regular Diet Procedures Procedures Performed: Primary low transverse caesarean section via a vertical skin incision for failure to progress, arrest of descent for living male child at 1334 Pending Studies Studies pending at discharge: no Medical Emergencies . Who to Call and When: Medical Emergencies: If at any time you feel your situation is an emergency, please call [phone] immediately. . Non-Emergent Contact Non-Emergency issues call your: Handkerchief Folder Call Non-Emergent contact if: you have a fever, temperature is above 101 . . "Provider Documentation" section prepared by Larry Tse. . VTE Core Measure Inpt VTE Proph given/why not?: Treatment not indicated
[2017-03-08] MEDS: FERROUS SULFATE 325 MG TAB PO SCH (07:10)
[2017-03-08] MEDS: PRENATAL VITAMIN TAB PO SCH (07:11)
[2017-03-08] MEDS: DOCUSATE SODIUM 100 MG CAP PO SCH (07:11)
[2017-03-08 07:25] VITALS: BP 146/93; PULSE 85; TEMP 36.8; O2SAT 99
[2017-03-08] MEDS ORDERED: MTR600X PO (07:54)
[2017-03-08] MEDS ORDERED: OXYC-57 PO (07:54)
[2017-03-08 09:46] VITALS: BP_DIAS 93; PULSE 85; TEMP 36.8
--- NOTE | 2017-03-10 19:19 | DISCHARGE SUMMARY ---
ADMIT DIAGNOSES: 1. Intrauterine at 39 and 6/7 weeks. 2. Insulin requiring gestational diabetes. 3. Chronic hypertension. 4. Morbid obesity. POSTOPERATIVE DIAGNOSES: 1. #1 through 4, the same. 2. Failure to progress and failure to descend. PROCEDURES: Primary low transverse section. HISTORY OF PRESENT ILLNESS: The patient is a 21-year-old 2, para 1 with an EDC of 03/06/2017, who presented to labor and delivery for reassuring, but nonreactive NST at 39 and 5/7 weeks. When she presented to labor and delivery, it was decided that we would proceed with induction of labor. She denied signs and symptoms of preeclampsia. She has insulin controlled gestational diabetes. Ultrasound at 36 week showed baby to be 7 pounds 2 ounces, estimated weight 63rd percentile, AC around the 50th percentile. For the rest of the patient's detailed history and physical, please see her dictated history and physical. ASSESSMENT: This is a 21-year-old 2, para 1 at 39 and 6/7 weeks who is being induced for chronic hypertension and insulin requiring gestational diabetes. She underwent a Carrion bulb for cervical ripening and progressed with Pitocin augmentation. She was able to progress to a rim, but stayed at -3 station. We were unable to drive the Pitocin to get the adequate MVUs as the baby would have deep variables when we would get contractions in the 40-50 MVU range. The baby had not descended in to the pelvis past -3 station as well throughout labor. The patient has a history of a shoulder dystocia to deliver a 7 pound 9 ounce baby with her last and I feel this baby is certainly larger. We discussed the options and the patient has elected to proceed with delivery for failure to progress. The patient underwent a primary low transverse section via a vertical midline incision. Blood loss was 900 mL. She delivered a viable male infant in right occiput posterior presentation, significant caput, nuchal cord x1 and short. Apgars were 9 and 9, weight was 9 pounds. Uterus, tubes, and ovaries were normal bilaterally. The patient's postoperative course was uncomplicated. She tolerated a regular diet, ambulated without difficulty after the removal of her Carrion catheter, urinated without difficulty and had her pain well-controlled on oral pain medications. Her initial hemoglobin was 11.1 and it did drop to 6.3. On postoperative day 2, but the patient remained completely asymptomatic from this standpoint and transfusion was deferred. She was discharged home on postoperative day #3 with Percocet and ibuprofen for pain and she was instructed to call if she felt lightheaded, dizzy or significantly tired at home and that she may have been require transfusion, but had no indications for transfusion at this time. She will return in 1 week for blood pressures check and to have her dale removed.
== END 2017-03-08 10:00 | disposition home or self-care (01) | DRG 766 ==
LOC: C.OPB 15:04 → C.LD 15:04 → C.OPB 15:40 → C.LD 15:40 → C.OBG 03-05 17:28
PROVIDERS: ADMIT Obstetrics & Gynecology; ATTEND Obstetrics & Gynecology
PROC: 3E033VJ Introduction of Other Hormone into Peripheral Vein, Percutaneous Approach (ICD-10-PCS; principal; 2017-03-05 13:22)
PROC: 10D00Z1 Extraction of Products of Conception, Low, Open Approach (ICD-10-PCS; principal; 2017-03-05 13:22)
DX: O32.4XX1 Maternal care for high head at term, fetus 1 (principal); O16.4 Unspecified maternal hypertension, complicating childbirth; O24.414 Gestational diabetes mellitus in pregnancy, insulin controlled; O69.81X1 Labor and delivery complicated by cord around neck, without compression, fetus 1; Z3A.39 39 weeks gestation of pregnancy; Z37.0 Single live birth

== ENCOUNTER 2017-03-12 21:46 | Emergency (ER) | payer OTHER ==
[~2017-03-12] VITALS: Ht 162.6 cm; Wt 112.0 kg
[~2017-03-12 21:46] MED LIST changes: +MTR600X PO; +OXYC-57 PO
[2017-03-12 21:54] VITALS: TEMP 36.7; Ht 162.6 cm; Wt 112.0 kg
[2017-03-12] MEDS ORDERED: CEPHALEXIN MONOHYDRATE 250 MG CAP PO ONE (23:00)
[2017-03-12] MEDS ORDERED: CEPH500C PO (23:16)
[2017-03-12 23:23] VITALS: BP 144/116; PULSE 88; O2SAT 100
--- NOTE | 2017-03-13 02:27 | EMERGENCY ROOM VISIT NOTE ---
History First contact with patient: 22:47 Chief Complaint: WOUND DEHISCENCE Stated Complaint: BLEEDING OPEN INCISION FROM Nursing Triage Summary: Patient states "I had a on 03/05/17. They took the dale out at 11 am. It openned up a little about 1 hr ago and is bleeding." History of Present Illness The patient is a 21 year old female who presents to the Emergency Room with complaints of open wound from her abdomen. The patient had a section performed 7 days ago, and had her dale removed around 11 AM. The patient states that she was doing well for the next 10 hours, but as she went to bathe her child she noticed that she had blood on her clothing. When the patient looked at her section she saw the lower and had opened slightly. The patient has not had fever or chills. She is not diabetic. She has not taken anything [id number] for her symptoms. The bleeding has stopped. She rates her discomfort a 2/10. She does not report aggravating or alleviating factors. Review of Systems More than 10 systems were reviewed and otherwise negative with the exception of history of present illness. Past Medical/Surgical History Medical Problems: (1) Anxiety (2) Asthma (3) Back pain (4) Back pain affecting in third trimester (5) Bipolar disorder (6) Enlarged uterus (7) Fall due to stumbling (8) heart rate nonreactive (9) Fever (10) GERD (gastroesophageal reflux disease) (11) Gestational age related disorder, < 24 completed weeks (12) Headache (13) Headache (14) HTN (hypertension) (15) Hyperinsulinemia (16) Hypersomnia with sleep apnea, unspecified (17) Hypertension (18) Hypertension affecting in third trimester (19) Left flank pain (20) Leiomyoma (21) Menorrhagia (22) Nail avulsion, finger (23) Panic disorder (24) (25) induced hypertension (26) with 36 completed weeks gestation (27) PTSD (post-traumatic stress disorder) (28) Syncope and collapse (29) Third trimester (30) URI (upper respiratory infection) (31) Vasomotor flushing (32) Vomiting Surgical Problems: (1) Encounter for removal of sutures (2) Laceration of finger of right hand (3) S/P T&A (status post tonsillectomy and adenoidectomy) Family History Diabetes mellitus Hypertension Social History Smoking Status: Never Smoker Alcohol Use: none Drug Use: none Marital Status: single Housing Status: lives with family Occupation Status: student Current/Historical Medications Scheduled Cephalexin Monohydrate (Keflex), 500 MG PO TID Ferrous Sulfate (Iron (Ferrous Sulfate)), 1 TAB PO DAILY Scheduled PRN Ibuprofen (Ibuprofen), 600 MG PO Q6H PRN for Pain, CONWAY, Cramping, or Fever Oxycodone/Acetaminophen 5MG/325MG (Percocet 5MG/325MG), 1 TABLET PO Q4H PRN for Pain Allergies Coded Allergies: Banana (Verified Allergy, Severe, THROAT SWELLING, 03/12/17) Penicillins (Verified Allergy, Mild, 03/12/17) Physical Exam Vital Signs Date Time Temp Pulse Resp B/P (MAP) Pulse Ox O2 Delivery O2 Flow Rate FiO2 03/12/17 23:23 88 144/116 100 03/12/17 21:54 36.7 99 18 143/88 98 Room Air Pain Rating (0-10): 0 Physical Exam VITALS: Vitals are noted on the nurse's note and reviewed by myself. Vital signs stable. GENERAL: Well-developed, well-nourished, white female, who is in no acute distress and resting comfortably. Patient is cooperative with the examination. HEAD: Normocephalic atraumatic. HEART: Regular rate and rhythm without murmurs gallops or rubs. LUNGS: Clear to auscultation bilaterally without wheezes, rales or rhonchi. No retractions or accessory muscle use. ABDOMEN: Positive normal bowel sounds x 4. Soft, nontender, without masses or organomegaly. No guarding or rebound tenderness. The patient does have a vertical incision consistent with section in the lower midline abdomen. The most inferior aspect of this incision has dehisced, measuring approximately 3 cm in total length. The remaining 6 cm remains intact superiorly. There is no significant drainage or discharge from the wound. No erythema or edema MUSCULOSKELETAL: No muscle atrophy, erythema, or edema noted. Full range of motion without joint tenderness in all extremities. Medical Decision & Procedures Medications Administered Medications (Trade) Dose Ordered Sig/Vince Route Start Time Stop Time Status Last Admin Dose Admin Cephalexin Monohydrate (Keflex Cap) 500 mg NOW ONCE PO 03/12/17 23:00 6/2/17 23:01 DC 03/12/17 22:58 500 MG ED Course Physical exam and history were performed. Nursing notes and EMR were reviewed. Patient appears to have dehiscence of a surgical incision. The patient does not appear toxic and was seen today by her surgeon where the dale were removed. The patient is not diabetic. She will be started on Keflex here in the department. I did apply 18 Steri-Strips with benzoin along the wound. The patient was placed on a lifting restriction and asked to follow-up with her surgeon on Wednesday after the weekend for further care and management. She was otherwise invited back to the ER with any new, worsening, or concerning symptoms. The chart was completed utilizing [employer] Voice Recognition Software. Grammatical errors, random word insertions, pronoun errors, and incomplete sentences are an occasional consequence of this system due to software limitations, ambient noise, and hardware issues. Any formal questions or concerns about the content, text, or information contained within the body of this dictation should be directly addressed to the provider for clarification. . Medical Decision Differential diagnosis includes, but is not limited to: Laceration, abrasion, foreign body, infection, dehiscence, postoperative complication, and others Impression Primary Impression: Wound dehiscence Departure Information Dispostion Home / Self-Care Condition GOOD Prescriptions Cephalexin Monohydrate (Keflex) 500 Mg Cap 500 MG PO TID for 7 Days, #21 CAP Prov: Chepe Buenrostro PA-C 03/12/17 Forms HOME CARE DOCUMENTATION FORM, IMPORTANT VISIT INFORMATION Patient Instructions My [facility] Additional Instructions You were seen and evaluated today on an emergency basis only. This is not a substitute for, or an effort to provide, complete comprehensive medical care. It is not possible to recognize and treat all injuries or illnesses in a single emergency department visit. For this reason it is recommended that you followup with your surgeon on Wednesday for ongoing care and evaluation. Do not lift anything heavier than your child. Cephalexin(Keflex) 500mg: Take one pill 3 times daily for 7 days to prevent skin infection. All antibiotics can cause diarrhea. If this occurs and you feel worse or it does not resolve in 1-2 days follow up with your doctor or return to the Emergency Department as this could be signs of serious underlying problems. Any medication can cause an allergic reaction, stop the pills immediately and return to the ER for rash, hives, breathing difficulties, or swelling. You are welcome to return to the emergency department anytime with new, worsening, or concerning symptoms.
== END 2017-03-12 23:24 | disposition home or self-care (01) ==
LOC: C.EDB 21:47
DX: T81.30XA Disruption of wound, unspecified, initial encounter (principal); X58.XXXA Exposure to other specified factors, initial encounter; F41.9 Anxiety disorder, unspecified; J45.909 Unspecified asthma, uncomplicated; F31.9 Bipolar disorder, unspecified; K21.9 Gastro-esophageal reflux disease without esophagitis; I10 Essential (primary) hypertension; F43.10 Post-traumatic stress disorder, unspecified; Z83.3 Family history of diabetes mellitus; Z82.49 Family history of ischemic heart disease and other diseases of the circulatory system

== ENCOUNTER → 2017-04-22 | Outpatient (CLI) | payer OTHER ==
[~2017-04-22] MED LIST changes: -PRENTAB26 PO
== END | disposition home or self-care (01) ==
LOC: C.PAPS 15:43
PROVIDERS: ATTEND Obstetrics & Gynecology
DX: Z12.4 Encounter for screening for malignant neoplasm of cervix (principal); R87.613 High grade squamous intraepithelial lesion on cytologic smear of cervix (HGSIL)

== ENCOUNTER → 2017-06-18 | Outpatient (CLI) | payer OTHER | END | disposition home or self-care (01) | LOC: C.PATHSPEC 16:24 | PROVIDERS: ATTEND Obstetrics & Gynecology | DX: D06.9 Carcinoma in situ of cervix, unspecified (principal) ==

== ENCOUNTER → 2017-07-27 | Outpatient (CLI) | payer OTHER | END | disposition home or self-care (01) | LOC: C.PATH 15:50 | PROVIDERS: ATTEND Obstetrics & Gynecology | DX: D06.9 Carcinoma in situ of cervix, unspecified (principal) ==

== ENCOUNTER 2017-09-02 08:29 | Emergency (ER) | payer OTHER ==
[~2017-09-02] VITALS: Ht 160 cm; Wt 118.0 kg
[2017-09-02 08:31] VITALS: Ht 160 cm; Wt 118.0 kg
[2017-09-02] MEDS ORDERED: IBUPROFEN 800 MG TAB PO STA (08:48)
[2017-09-02] MEDS ORDERED: LIDOCAINE/EPINEPH/TETRACAINE 1 EA SYR EXT STA (08:48)
[2017-09-02] MEDS ORDERED: CLINDAMYCIN HCL 150 MG CAP PO STA (08:48)
[2017-09-02] MEDS ORDERED: CLINDAMYCIN 150MG HOME PACK PO ONE (09:00)
[2017-09-02] MEDS ORDERED: CLIN300C2 PO (09:15)
--- NOTE | 2017-09-02 09:16 | EMERGENCY ROOM VISIT NOTE ---
ED Visit Note First contact with patient: 08:35 CHIEF COMPLAINT: Toothache HISTORY OF PRESENT ILLNESS: This 22-year-old female patient presented to the emergency department by private vehicle with a progressive toothache and gum pain for past two days. She states that she had a tooth pulled 3 days ago, this is where her pain is coming from. She states that she was put on Keflex, which she has been taking three times a day as prescribed, she states she has not missed any doses. She states today the pain got much worse and she is having mild increased swelling to her left face along the lower jaw line. She also notes a bad taste in her mouth, although she denies any known drainage from the extraction site. She rates the pain as constant, severe and aching/throbbing, somewhat improved with Tylenol, worse with talking and eating/drinking, 10. She states she called her dentist yesterday and they were already closed for the holiday through the weekend, so she will not be able to get an appointment for at least 4 days, and she states "I just couldn't take the pain anymore." She does note that she was given a prescription for Redwood, but she has two young children at home and does not want to take anything sedating while she is caring for them. She denies fevers, chills, vomiting, chest pain, SOB, headache , sore throat, ear pain, or rash. REVIEW OF SYSTEMS: A 6 system review of systems was completed with positives and pertinent negatives listed in the HPI. ALLERGIES: Reviewed in chart MEDICATIONS: Reviewed PMH: No significant past medical history SOCIAL HISTORY: Lives at home with family. She denies tobacco use, alcohol use , illicit drug use. PHYSICAL EXAM: Vitals are noted on the nurse's note and reviewed by myself. Vital signs stable, afebrile. GENERAL: Pleasant and cooperative, in no acute distress, but does appear to be in some discomfort, non-diaphoretic, well- developed well-nourished. Mouth: The left lower back molar is surgically absent, there is erythema and swelling of the surrounding gums, very tender to palpation, and most severe tenderness within the socket. There is no notable discharge from the wound. No broken or carious teeth noted. The remainder of the pharynx and tonsils are without erythema, edema, or exudate. The airway is patent. There is no facial swelling, cervical or submandibular lymphadenopathy. No edema the mouth floor. The patient has overall good dental hygiene. EARS: External auditory canals clear, tympanic membranes pearly godinez without erythema or effusion bilaterally. ED COURSE: I examined the patient. Findings consistent with dry socket, and I am also concern for developing infection of the site. If the benzocaine orally , socket was anesthetized. It dental dressing was then cut to size and placed into the socket, with good adherence to the wound. Given that the patient has been on Keflex for 3 days with worse pain and resolving infection, will change her to clindamycin, first dose given in the ED and take home pack provided due to the holiday. The patient was encouraged to follow up closely with her dentist as soon as they are open again. She was also given strict return precautions should her symptoms worsen, she verbalized understanding. Patient was discharged home much improved, in stable condition and ambulatory. Medication Reconciliation: I attest that I have personally reviewed the patient' s current medication list. Blood pressure screening: The patient was found to have an elevated blood pressure and was referred to their primary doctor for recheck and further treatment. Problem List Medical Problems: (1) Anxiety Status: Chronic (2) Asthma Status: Chronic (3) Back pain Status: Resolved (4) Back pain affecting in third trimester Status: Resolved (5) Bipolar disorder Status: Chronic (6) Fall due to stumbling Status: Resolved (7) Fever Status: Resolved (8) GERD (gastroesophageal reflux disease) Status: Chronic (9) Gestational age related disorder, < 24 completed weeks Status: Resolved (10) Headache Status: Chronic (11) Headache Status: Resolved (12) HTN (hypertension) Status: Chronic (13) Hyperinsulinemia Status: Chronic (14) Hypersomnia with sleep apnea, unspecified Status: Chronic (15) Hypertension Status: Resolved (16) Left flank pain Status: Resolved (17) Nail avulsion, finger Status: Resolved (18) Panic disorder Status: Chronic (19) Status: Resolved (20) induced hypertension Status: Resolved (21) PTSD (post-traumatic stress disorder) Status: Chronic (22) Third trimester Status: Resolved (23) Vomiting Status: Resolved Surgical Problems: (1) Encounter for removal of sutures Status: Resolved (2) Laceration of finger of right hand Status: Resolved (3) S/P T&A (status post tonsillectomy and adenoidectomy) Status: Chronic Current/Historical Medications Scheduled Clindamycin Hcl (Cleocin), 300 MG PO QID Ferrous Sulfate (Iron (Ferrous Sulfate)), 1 TAB PO DAILY Lamotrigine (Lamotrigine), 50 MG PO QAM Lamotrigine (Lamotrigine), 100 MG PO QAM Scheduled PRN Ibuprofen (Ibuprofen), 600 MG PO Q6H PRN for Pain, CONWAY, Cramping, or Fever Allergies Coded Allergies: Banana (Verified Allergy, Severe, THROAT SWELLING, 09/02/17) Penicillins (Verified Allergy, Mild, 09/02/17) Vital Signs Date Time Temp Pulse Resp B/P (MAP) Pulse Ox O2 Delivery O2 Flow Rate FiO2 09/02/17 09:57 36.7 71 18 149/90 99 09/02/17 08:31 36.7 78 20 147/80 98 Room Air Medications Administered Medications (Trade) Dose Ordered Sig/Vince Route Start Time Stop Time Status Last Admin Dose Admin Clindamycin HCl (Cleocin Cap) 300 mg NOW STAT PO 09/02/17 08:48 09/02/17 08:52 DC 09/02/17 09:04 300 MG Ibuprofen (Motrin Tab) 800 mg NOW STAT PO 09/02/17 08:48 09/02/17 08:52 DC 09/02/17 08:48 800 MG Clindamycin HCl (Cleocin 150MG Home Pack) 2 homepack UD ONCE PO 09/02/17 09:00 09/02/17 09:01 DC 09/02/17 09:00 2 HOMEPACK Departure Information Impression Primary Impression: Dry tooth socket Additional Impression: Dental infection Dispostion Home / Self-Care Condition GOOD Prescriptions Clindamycin Hcl (CLEOCIN) 300 Mg Cap 300 MG PO QID for 9 Days, #36 CAP Prov: Olivia Mccartney CRNP 09/02/17 Referrals Leandro Mcneal M.D. (PCP) Patient Instructions ED Socket Dry, My [facility] Additional Instructions Keep the dressing in your socket in place as long as possible. This should dissolve on its own over the next 2-3 days, but may take up to 7 days to fully dissolve and fall out. You were prescribed clindamycin to be taken 300 mg 4 times a day for 10 days. This is an antibiotic. All antibiotics have the potential to cause diarrhea. Stop this medication and contact a medical provider if you were to develop any significant adverse side effects including: wheezing, shortness of breath, passing out, vomiting, or a diffuse rash. Always take antibiotics as directed and COMPLETE the ENTIRE course regardless of the improvement of your symptoms. Stop taking the Keflex antibiotic. You may take Tylenol 1000 mg every 8 hours and ibuprofen 800 mg every 8 hours to help treat your pain. For best results, alternate these medications every 4 hours. You may take your prescribed Redwood, 1-2 tablets at bedtime to help with pain so you can sleep. You may apply warm compresses to the outer area of your face to help with discomfort and swelling. Follow-up with your dentist on Wednesday for further management of your dental pain. Please return to the emergency department for worsening symptoms, including severe worsening pain, increased swelling or redness of your face, pus drainage from the wound, difficulty swallowing or breathing, fever/chills/feeling ill, or any other concerns. Problem Qualifiers
[2017-09-02] MEDS ORDERED: LAMO1TAB21 PO (09:17)
[2017-09-02] MEDS ORDERED: LMC25 PO (09:17)
[2017-09-02 09:57] VITALS: BP 149/90; PULSE 71; TEMP 36.7; O2SAT 99
== END 2017-09-02 09:58 | disposition home or self-care (01) ==
LOC: C.EDB 08:31 → C.EDA 09:58
DX: M27.3 Alveolitis of jaws (principal); K04.7 Periapical abscess without sinus; Z98.818 Other dental procedure status; F31.9 Bipolar disorder, unspecified

== ENCOUNTER → 2017-12-10 | Outpatient (CLI) | payer OTHER ==
[~2017-12-10] MED LIST changes: +LAMO1TAB21 PO; +LMC25 PO; -OXYC-57 PO
== END | disposition home or self-care (01) ==
LOC: C.LABSPEC 13:09
PROVIDERS: ATTEND Physician Assistant
DX: Z30.430 Encounter for insertion of intrauterine contraceptive device (principal)

== ENCOUNTER → 2018-01-21 | Outpatient (CLI) | payer OTHER | END | disposition home or self-care (01) | LOC: C.LABSPEC 14:38 | PROVIDERS: ATTEND Physician Assistant | DX: R39.9 Unspecified symptoms and signs involving the genitourinary system (principal) ==

== ENCOUNTER → 2018-02-14 | Outpatient (CLI) | payer OTHER | END | disposition home or self-care (01) | LOC: C.PAPS 14:15 | PROVIDERS: ATTEND Obstetrics & Gynecology | DX: D06.9 Carcinoma in situ of cervix, unspecified (principal); R87.613 High grade squamous intraepithelial lesion on cytologic smear of cervix (HGSIL) ==

== ENCOUNTER → 2018-04-26 | Outpatient (CLI) | payer BC, OTHER | END | disposition home or self-care (01) | LOC: C.PATHSPEC 16:22 | PROVIDERS: ATTEND Obstetrics & Gynecology | DX: N87.0 Mild cervical dysplasia (principal) ==

== ENCOUNTER 2023-03-01 22:44 | Inpatient (IN) ==
[2023-03-01 23:38] LABS: Appearance Urine Clear (Clear); Bacteria Urine Automated Negative (Negative); Bilirubin Urine Negative (Negative); Blood Urine 2+ (Negative); Cast Urine Automated 0 /lpf (0-5); Color Urine Yellow; Glucose Urine UA Negative (Negative); Ketones Urine Negative (Negative); Leukocyte Esterase Urine Negative (Negative); Nitrite Urine Negative (Negative); Protein Urine Negative (Negative); RBC Urine Automated 0-4 /hpf (0-4); Specific Gravity Urine 1.016 (1.000-1.030); Urobilinogen Urine Negative (Negative)
--- NOTE | 2023-03-01 23:49 | Emergency Department Note ---
Impression & Plan Suicidal ideation ED Provider Note ED Provider Note NAME: OBINNA SAMUELS AGE:27 SEX: Female : 1995 ARRIVES VIA: Private vehicle INFORMANT: Patient ED PROVIDER(s): Ibeth Null DO CHIEF COMPLAINT: Mental health evaluation HPI: This is a 27-year-old female presents emergency department for mental health evaluation. Patient made statements of wanting to hurt herself by jumping out in front of an 18 ro earlier today. Patient states she has had SI both passive and intermittently active with thoughts of plan for a long time although worse in the last several weeks. She denies HI, and hallucinations. Patient is a diabetic and states she is awaiting Trulicity to be delivered so she could return to taking that for improved glycemic control. She denies any other medication changes. Patient states she does use marijuana and does drink alcohol daily. No other use of recreational drugs. PAST MEDICAL HISTORY:See Below PAST SURGICAL HISTORY:See Below FAMILY HISTORY:See Below SOCIAL HISTORY:See Below HOME MEDICATIONS:See Below ALLERGIES:See Below VITALS:See Below PHYSICAL EXAMINATION: GENERAL: alert, well appearing, well nourished, no distress, non-toxic EYE EXAM: normal conjunctiva, PERRL and EOM's grossly intact OROPHARYNX: no exudate, no erythema, lips, buccal mucosa, and tongue normal and mucous membranes are moist NECK: supple, no nuchal rigidity, no adenopathy, non-tender LUNGS: Clear to auscultation. Normal chest wall mechanics, no w/r/r HEART: no murmurs, S1 normal and S2 normal ABDOMEN: abdomen soft, non-tender, normo-active bowel sounds, no masses, no rebound or guarding. BACK: Back is symmetrical on inspection and there is no deformity, no midline tenderness, no CVA tenderness. SKIN: no rashes, petechiae, orbruising UPPER EXTREMITIES: upper extremities are grossly normal. FROM, nml pulses b/l. LOWER EXTREMITIES: No pitting edema. FROM, nml pulses b/l. NEURO EXAM: Normal sensorium, cranial nerves II-XII grossly intact, normal speech, no facial droop,nogross weakness of arms, no gross weakness of legs. Gross sensation intact. No ataxia. Vital Signs: reviewed and remarkable Differential Diagnosis: Differential diagnoses considered include mood disorder, infection, hypoglycemia , electrolyte abnormalities, cardiac sources, intracerebral event, toxicologic, neurologic, as well as others. MEDICAL DECISION MAKING: This is a 18-year-old female who presents to the emergency department after making suicidal statements in front of family. Patient admits to SI for a long time, worse recently, now with the plan. Patient calm and cooperative here. After being medically cleared and then having case management perform evaluation, inpatient treatment was recommended. Patient declined. We discussed concern over her safety and her worsening depression and progression of SI. Patient continued to decline voluntary mental health treatment so case management tried to reach the delegate. Both the delegate and their hide house supervisor were unreachable by phone so a 2 doctor 302 was performed. Consultation(s): [] ER Treatment Provided: See below 0202: Patient was seen and evaluated by case management and they discussed options for inpatient treatment. Patient refused voluntary mental health treatment stating she just wanted to go home and that tonight was "not a big deal". Case management then attempted to contact the delegate who was unreachable by phone. They then tried the delicate hide house supervisor who is also unreachable. Eventually as a result of exhausting options for usual procedure involving the delicate when performing a 302, a 2 doctor 302 was then performed by myself and Dr. Bledsoe. Diagnostics Interpreted By Me: -ECG: [] -Cardiac Monitoring: An order was placed for continuous cardiac monitoring. The monitor shows a rate of [] with [] rhythm. -Laboratory studies: As stated above and show below. -Imaging studies: [] Triage Nursing Note Reviewed Prior/Outside Records Reviewed Procedures: [] Critical Care: [] Past Med/Surg History Medical History Anxiety Asthma Bipolar disorder SHIRLEY III (cervical intraepithelial neoplasia grade III) with severe dysplasia leep x 2 , last in 06/28 GERD (gastroesophageal reflux disease) History of abnormal menstrual cycle History of gestational diabetes History of hypertension History of menorrhagia History of varicella Hypertension affecting in third trimester IUD (intrauterine device) in place Mirena placed 12/26 Leiomyoma PTSD (post-traumatic stress disorder) Surgical History History of kidney surgery S/P section S/P LEEP (loop electrosurgical excision procedure) x 2, last in 2017 S/P tonsillectomy S/P tooth extraction Family History Father Diabetes Testicular cancer Grandmother (Maternal) Dyslipidemia Grandmother (Paternal) Breast cancer Denies family history of Colon cancer Ovarian cancer Prostate cancer Myocardial infarction Social History Smoking Status: Never smoker Age Started Using Tobacco: 16; Age Quit Using Tobacco: 24; Cigarettes Per Day: 2+ per day (started with quarentine); Second Hand Exposure: No; Do You Dip or Chew Tobacco: No; Hx Alcohol Use: Yes Alcohol Intake Frequency: 2-3 x/Week Hx Substance Use: Yes Prescribed Medications: Marijuana Last Used Substance: Days (ago) Last Used Substance Other:: 1 Preferred Language: Sammarinese Communication Ability: Effective Visual Impairment: No Limitations Hearing Ability: Normal Computer Operations Technician Required: No Beliefs That Will Affect Care: None marital status: Single Current Living Situation: Family and Significant Other Current Living Situation Comment: Lives with children current occupational status: employed 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 Feels Safe at Home: Yes Dental Care, Regularly: Yes Physical Activity Frequency: 1-2 Times per Week Seatbelt Use: always Sunscreen Use: Yes Gender Identity: Female Allergies Allergies Allergy/AdvReac Type Severity Reaction Status Date / Time banana Allergy Severe THROAT Verified 02/12/23 14:28 SWELLING Penicillins Allergy Mild Verified 02/12/23 14:28 Home Meds Home Medications Medication Instructions Recorded Confirmed levonorgestrel 21 mcg/24 hours (8 1 device intrauterine UD 06/26/19 03/02/23 yrs) 52 mg intrauterine device (Mirena) lamotrigine 25 mg tablet 25 mg PO QAM 04/02/21 03/02/23 fluoxetine 40 mg capsule 40 mg PO QAM 11/06/22 03/02/23 lamotrigine 100 mg tablet 100 mg PO QAM 11/06/22 03/02/23 metformin 500 mg tablet,extended 1,000 mg PO QAM 11/06/22 03/02/23 release 24 hr cariprazine 3 mg capsule (Vraylar) 3 mg 03/02/23 lisinopril 5 mg tablet 5 mg PO QAM 03/02/23 03/02/23 Previous Rx's Medication Instructions Recorded lancets 30 gauge (OneTouch Delica #100 ea 06/02/22 Plus Lancet) blood sugar diagnostic #100 ea 11/06/22 blood-glucose meter (OneTouch #1 ea 11/06/22 Ultra2 Meter) dulaglutide 0.75 mg/0.5 mL See Rx Instructions .Route 02/04/23 subcutaneous pen injector .COMPLEX #6 mL (Trulicity) Results & Data (ED) Vital Signs Vital Signs - 24 hr 03/01/23 22:47 03/02/23 00:23 Temperature 37.2 C Temperature Source Temporal Artery Scan Pulse Rate 82 Pulse Rate [Finger] 63 Pulse Rhythm Regular Pulse Rhythm [Finger] Regular Pulse Strength Normal Pulse Strength [Finger] Normal Respiratory Rate 19 19 Respiratory Effort / Characteristics Non-Labored Spontaneous Non-Labored Spontaneous Respiratory Depth Normal Normal Respiratory Pattern Regular Regular Blood Pressure 185/102 H Blood Pressure [Right Arm] 118/64 Blood Pressure Mean 129 Blood Pressure Mean [Right Arm] 82 Blood Pressure Position Sitting Blood Pressure Position [Right Arm] Lying Pulse Oximetry 97 98 Oxygen Delivery Method Room Air Room Air Sepsis Recent Fever Within 48 Hours No Sepsis New/Unexplained Change in Mental Status N/A Sepsis Action Taken by Nursing No Action Required Laboratory Data 03/01/23 23:38 03/01/23 23:38 Lab Results 03/01/23 03/01/23 03/01/23 Range/Units 23:17 23:17 23:17 WBC (4.8-10.8) K/ul RBC (4.20-5.40) M/uL Hgb (12.0-16.0) g/dl Hct (37.0-47.0) % MCV (80.0-100.0) fL MCH (25.0-34.0) pg MCHC (32.0-36.0) g/dL RDW Std Deviation (36.4-46.3) fL RDW Coeff of Marissa (11.5-14.5) % Plt Count (130-400) K/uL MPV (9.4-12.4) fL Immature Gran % (Auto) % Neut % (Auto) % Lymph % (Auto) % [place] % (Auto) % Eos % (Auto) % Baso % (Auto) % Neut # (Auto) (1.40-6.50) K/uL Lymph # (Auto) (1.2-3.4) K/uL [place] # (Auto) (0.11-0.59) K/uL Eos # (Auto) (0-0.50) K/uL Baso # (Auto) (0-0.2) K/uL Immature Gran # (Auto) (0.01-0.20) K/uL Sodium (136-145) mmol/L Potassium (3.5-5.1) mmol/L Chloride (98-107) mmol/L Carbon Dioxide (21-32) mmol/L Anion Gap (3-11) BUN (6-23) mg/dl Creatinine (0.6-1.2) mg/dl Est Cr Clr Drug Dosing ml/min Est GFR ( Amer) ml/min Est GFR (Non-Af Amer) ml/min BUN/Creatinine Ratio (10-20) Glucose (70-99(Fasting)) mg/dl POC Glucose (70-99) mg/dl Calcium (8.6-10.3) mg/dl Total Bilirubin (0.2-1.0) mg/dl AST (13-39) U/L ALT (7-52) U/L Alkaline Phosphatase (34-104) U/L Total Protein (6.0-8.3) gm/dl Albumin (3.4-5.0) gm/dl Globulin (2.5-4.0) gm/dl Albumin/Globulin Ratio (0.9-2) TSH (0.300-4.500) uIu/ml Urine Color Yellow Urine Appearance Clear (Clear) Urine pH 6.0 (4.5-7.5) Ur Specific Whitney 1.016 (1.000-1.030) Urine Protein Negative (Negative) Urine Glucose (UA) Negative (Negative) Urine Ketones Negative (Negative) Urine Blood 2+ H (Negative) Urine Nitrite Negative (Negative) Urine Bilirubin Negative (Negative) Urine Urobilinogen Negative (Negative) Ur Leukocyte Esterase Negative (Negative) Urine WBC (Auto) 1-5 (0-5) /hpf Urine RBC (Auto) 0-4 (0-4) /hpf U Hyaline Cast (Auto) 0 (0-5) /lpf U Epithel Cells (Auto) 10-20 H (0-5) /lpf Urine Bacteria (Auto) Negative (Negative) POC Ur Test NEG (NEG) Salicylates (3.0-30) mg/dl Urine Opiates Screen Neg (Neg) Ur Methadone, Qual Neg (Neg) Acetaminophen (10-30) ug/ml Urine Barbiturates Neg (Neg) Ur Phencyclidine (PCP) Neg (Neg) U Amphetamin/Meth Scrn Neg (Neg) MDMA (Ecstasy) Screen Neg (Neg) U Benzodiazepines Scrn Neg (Neg) Ur Cocaine Metabolite Neg (Neg) U Marijuana (THC) Screen Pos H (Neg) Ethyl Alcohol mg/dL (<10.0) mg/dl SARS-CoV-2, RNA, NAAT (NEGATIVE) 03/01/23 03/01/23 03/01/23 Range/Units 23:18 23:38 23:38 WBC 15.22 H (4.8-10.8) K/ul RBC 4.89 (4.20-5.40) M/uL Hgb 14.0 (12.0-16.0) g/dl Hct 40.4 (37.0-47.0) % MCV 82.6 (80.0-100.0) fL MCH 28.6 (25.0-34.0) pg MCHC 34.7 (32.0-36.0) g/dL RDW Std Deviation 37.7 (36.4-46.3) fL RDW Coeff of Marissa 12.5 (11.5-14.5) % Plt Count 384 (130-400) K/uL MPV 10.2 (9.4-12.4) fL Immature Gran % (Auto) 0.7 % Neut % (Auto) 63.2 % Lymph % (Auto) 26.0 % [place] % (Auto) 6.3 % Eos % (Auto) 3.2 % Baso % (Auto) 0.6 % Neut # (Auto) 9.64 H (1.40-6.50) K/uL Lymph # (Auto) 3.95 H (1.2-3.4) K/uL [place] # (Auto) 0.96 H (0.11-0.59) K/uL Eos # (Auto) 0.48 (0-0.50) K/uL Baso # (Auto) 0.09 (0-0.2) K/uL Immature Gran # (Auto) 0.10 (0.01-0.20) K/uL Sodium 136 (136-145) mmol/L Potassium 3.8 (3.5-5.1) mmol/L Chloride 101 (98-107) mmol/L Carbon Dioxide 26 (21-32) mmol/L Anion Gap 9 (3-11) BUN 12 (6-23) mg/dl Creatinine 0.87 (0.6-1.2) mg/dl Est Cr Clr Drug Dosing 121.4 ml/min Est GFR ( Amer) 104.3 ml/min Est GFR (Non-Af Amer) 90.0 ml/min BUN/Creatinine Ratio 13.8 (10-20) Glucose 138 H (70-99(Fasting)) mg/dl POC Glucose (70-99) mg/dl Calcium 9.6 (8.6-10.3) mg/dl Total Bilirubin 0.5 (0.2-1.0) mg/dl AST 16 (13-39) U/L ALT 24 (7-52) U/L Alkaline Phosphatase 68 (34-104) U/L Total Protein 7.3 (6.0-8.3) gm/dl Albumin 4.5 (3.4-5.0) gm/dl Globulin 2.8 (2.5-4.0) gm/dl Albumin/Globulin Ratio 1.6 (0.9-2) TSH (0.300-4.500) uIu/ml Urine Color Urine Appearance (Clear) Urine pH (4.5-7.5) Ur Specific Whitney (1.000-1.030) Urine Protein (Negative) Urine Glucose (UA) (Negative) Urine Ketones (Negative) Urine Blood (Negative) Urine Nitrite (Negative) Urine Bilirubin (Negative) Urine Urobilinogen (Negative) Ur Leukocyte Esterase (Negative) Urine WBC (Auto) (0-5) /hpf Urine RBC (Auto) (0-4) /hpf U Hyaline Cast (Auto) (0-5) /lpf U Epithel Cells (Auto) (0-5) /lpf Urine Bacteria (Auto) (Negative) POC Ur Test (NEG) Salicylates (3.0-30) mg/dl Urine Opiates Screen (Neg) Ur Methadone, Qual (Neg) Acetaminophen (10-30) ug/ml Urine Barbiturates (Neg) Ur Phencyclidine (PCP) (Neg) U Amphetamin/Meth Scrn (Neg) MDMA (Ecstasy) Screen (Neg) U Benzodiazepines Scrn (Neg) Ur Cocaine Metabolite (Neg) U Marijuana (THC) Screen (Neg) Ethyl Alcohol mg/dL (<10.0) mg/dl SARS-CoV-2, RNA, NAAT NEGATIVE (NEGATIVE) 03/01/23 03/01/23 03/01/23 Range/Units 23:38 23:38 23:38 WBC (4.8-10.8) K/ul RBC (4.20-5.40) M/uL Hgb (12.0-16.0) g/dl Hct (37.0-47.0) % MCV (80.0-100.0) fL MCH (25.0-34.0) pg MCHC (32.0-36.0) g/dL RDW Std Deviation (36.4-46.3) fL RDW Coeff of Marissa (11.5-14.5) % Plt Count (130-400) K/uL MPV (9.4-12.4) fL Immature Gran % (Auto) % Neut % (Auto) % Lymph % (Auto) % [place] % (Auto) % Eos % (Auto) % Baso % (Auto) % Neut # (Auto) (1.40-6.50) K/uL Lymph # (Auto) (1.2-3.4) K/uL [place] # (Auto) (0.11-0.59) K/uL Eos # (Auto) (0-0.50) K/uL Baso # (Auto) (0-0.2) K/uL Immature Gran # (Auto) (0.01-0.20) K/uL Sodium (136-145) mmol/L Potassium (3.5-5.1) mmol/L Chloride (98-107) mmol/L Carbon Dioxide (21-32) mmol/L Anion Gap (3-11) BUN (6-23) mg/dl Creatinine (0.6-1.2) mg/dl Est Cr Clr Drug Dosing ml/min Est GFR ( Amer) ml/min Est GFR (Non-Af Amer) ml/min BUN/Creatinine Ratio (10-20) Glucose (70-99(Fasting)) mg/dl POC Glucose (70-99) mg/dl Calcium (8.6-10.3) mg/dl Total Bilirubin (0.2-1.0) mg/dl AST (13-39) U/L ALT (7-52) U/L Alkaline Phosphatase (34-104) U/L Total Protein (6.0-8.3) gm/dl Albumin (3.4-5.0) gm/dl Globulin (2.5-4.0) gm/dl Albumin/Globulin Ratio (0.9-2) TSH 5.067 H (0.300-4.500) uIu/ml Urine Color Urine Appearance (Clear) Urine pH (4.5-7.5) Ur Specific [place] (1.000-1.030) Urine Protein (Negative) Urine Glucose (UA) (Negative) Urine Ketones (Negative) Urine Blood (Negative) Urine Nitrite (Negative) Urine Bilirubin (Negative) Urine Urobilinogen (Negative) Ur Leukocyte Esterase (Negative) Urine WBC (Auto) (0-5) /hpf Urine RBC (Auto) (0-4) /hpf U Hyaline Cast (Auto) (0-5) /lpf U Epithel Cells (Auto) (0-5) /lpf Urine Bacteria (Auto) (Negative) POC Ur Test (NEG) Salicylates < 3.0 L (3.0-30) mg/dl Urine Opiates Screen (Neg) Ur Methadone, Qual (Neg) Acetaminophen < 3 L (10-30) ug/ml Urine Barbiturates (Neg) Ur Phencyclidine (PCP) (Neg) U Amphetamin/Meth Scrn (Neg) MDMA (Ecstasy) Screen (Neg) U Benzodiazepines Scrn (Neg) Ur Cocaine Metabolite (Neg) U Marijuana (THC) Screen (Neg) Ethyl Alcohol mg/dL < 10.0 (<10.0) mg/dl SARS-CoV-2, RNA, NAAT (NEGATIVE) 03/01/23 Range/Units 23:41 WBC (4.8-10.8) K/ul RBC (4.20-5.40) M/uL Hgb (12.0-16.0) g/dl Hct (37.0-47.0) % MCV (80.0-100.0) fL MCH (25.0-34.0) pg MCHC (32.0-36.0) g/dL RDW Std Deviation (36.4-46.3) fL RDW Coeff of Marissa (11.5-14.5) % Plt Count (130-400) K/uL MPV (9.4-12.4) fL Immature Gran % (Auto) % Neut % (Auto) % Lymph % (Auto) % [place] % (Auto) % Eos % (Auto) % Baso % (Auto) % Neut # (Auto) (1.40-6.50) K/uL Lymph # (Auto) (1.2-3.4) K/uL [place] # (Auto) (0.11-0.59) K/uL Eos # (Auto) (0-0.50) K/uL Baso # (Auto) (0-0.2) K/uL Immature Gran # (Auto) (0.01-0.20) K/uL Sodium (136-145) mmol/L Potassium (3.5-5.1) mmol/L Chloride (98-107) mmol/L Carbon Dioxide (21-32) mmol/L Anion Gap (3-11) BUN (6-23) mg/dl Creatinine (0.6-1.2) mg/dl Est Cr Clr Drug Dosing ml/min Est GFR ( Amer) ml/min Est GFR (Non-Af Amer) ml/min BUN/Creatinine Ratio (10-20) Glucose (70-99(Fasting)) mg/dl POC Glucose 144 H (70-99) mg/dl Calcium (8.6-10.3) mg/dl Total Bilirubin (0.2-1.0) mg/dl AST (13-39) U/L ALT (7-52) U/L Alkaline Phosphatase (34-104) U/L Total Protein (6.0-8.3) gm/dl Albumin (3.4-5.0) gm/dl Globulin (2.5-4.0) gm/dl Albumin/Globulin Ratio (0.9-2) TSH (0.300-4.500) uIu/ml Urine Color Urine Appearance (Clear) Urine pH (4.5-7.5) Ur Specific [place] (1.000-1.030) Urine Protein (Negative) Urine Glucose (UA) (Negative) Urine Ketones (Negative) Urine Blood (Negative) Urine Nitrite (Negative) Urine Bilirubin (Negative) Urine Urobilinogen (Negative) Ur Leukocyte Esterase (Negative) Urine WBC (Auto) (0-5) /hpf Urine RBC (Auto) (0-4) /hpf U Hyaline Cast (Auto) (0-5) /lpf U Epithel Cells (Auto) (0-5) /lpf Urine Bacteria (Auto) (Negative) POC Ur Test (NEG) Salicylates (3.0-30) mg/dl Urine Opiates Screen (Neg) Ur Methadone, Qual (Neg) Acetaminophen (10-30) ug/ml Urine Barbiturates (Neg) Ur Phencyclidine (PCP) (Neg) U Amphetamin/Meth Scrn (Neg) MDMA (Ecstasy) Screen (Neg) U Benzodiazepines Scrn (Neg) Ur Cocaine Metabolite (Neg) U Marijuana (THC) Screen (Neg) Ethyl Alcohol mg/dL (<10.0) mg/dl SARS-CoV-2, RNA, NAAT (NEGATIVE) Administered Medications Discontinued Medications Acetaminophen (Acetaminophen 325 Mg Tab) 650 mg PO NOW STA Stop: 03/02/23 01:01 Last Admin: 03/02/23 01:04 Dose: 650 mg Documented By: DONALD Discharge Plan Visit Data Chief Complaint: Mental Health Evaluation Stated Complaint: MENTAL HEALTH EVALUATION ED Provider: Ibeth Null Discharge Problem: Suicidal ideation Patient Disposition: Admitted As Inpatient Discharge Instructions Interventions: ED Discharge Assessment Last Done: 03/02/23 03:03
[2023-03-02 00:06] LABS: Amphetamines+Metham, Urine Neg (Neg); Barbiturates, Urine Neg (Neg); Benzodiazepine, Urine Neg (Neg); Cocaine, Urine Neg (Neg); MDMA (Ecstacy), Urine Neg (Neg); Methadone, Urine Neg (Neg); Opiate, Urine Neg (Neg); Phencyclidine, Urine Neg (Neg)
[2023-03-02 00:15] LABS: Albumin Globulin Ratio 1.6 (0.9-2); Albumin Level 4.5 gm/dl (3.4-5.0); BUN Creatinine Ratio 13.8 (10-20); Bilirubin,Total 0.5 mg/dl (0.2-1.0); Calcium 9.6 mg/dl (8.6-10.3); Creatinine Clr Calc Pharmacy 121.4 ml/min; Est GFR (African American) 104.3 ml/min; Globulin 2.8 gm/dl (2.5-4.0); Potassium 3.8 mmol/L (3.5-5.1); Total Protein 7.3 gm/dl (6.0-8.3)
[2023-03-02 00:24] LABS: Basophils # (auto) 0.09 K/uL (0-0.2); Basophils % (auto) 0.6 %; Eosinophils # (auto) 0.48 K/uL (0-0.50); Eosinophils % (auto) 3.2 %; Hematocrit (blood only) 40.4 % (37.0-47.0); Immature Granulocytes % (auto) 0.7 %; Lymphocytes # (auto) 3.95 K/uL (1.2-3.4); Mean Corpuscular Hemoglobin 28.6 pg (25.0-34.0); Mean Corpuscular Hgb Conc 34.7 g/dL (32.0-36.0); Mean Corpuscular Volume 82.6 fL (80.0-100.0); Mean Platelet Volume 10.2 fL (9.4-12.4); Monocytes # (auto) 0.96 K/uL (0.11-0.59); Monocytes % (auto) 6.3 %; Neutrophils # (auto) 9.64 K/uL (1.40-6.50); Neutrophils % (auto) 63.2 %; Platelet Count 384 K/uL (130-400); RDW Coefficient of Variation 12.5 % (11.5-14.5); RDW Standard Deviation 37.7 fL (36.4-46.3); Red Blood Count 4.89 M/uL (4.20-5.40); White Blood Count 15.22 K/ul (4.8-10.8)
[2023-03-02 00:30] LABS: Acetaminophen < 3 ug/ml (10-30); Salicylate < 3.0 mg/dl (3.0-30)
[2023-03-02] MEDS ORDERED: ACETAMINOPHEN 325 MG TAB PO STA (01:00)
--- NOTE | 2023-03-02 02:03 | Emergency Department Note ---
ED Visit Note I was asked to get involved in this patient for a physician 302 commitment. The county delegate was unable to be reached and was not answering the phone nor was the production machine shop supervisor. Dr. Null did fill out the petition statement and I signed off on it. I did examine and talk to the patient. She admits to having suicidal ideations and thought she had a plan to walk out in traffic. She has history is of trying to hurt herself in the past. She was given multiple opportunities to sign in voluntarily. At this point I am concerned for her safety and I do feel she meets the 302 criteria and signed off on the 302 commitment. .
[2023-03-02] MEDS ORDERED: MAGNESIUM HYDROXIDE SUSP 30 ML UDC PO PRN (02:48)
[2023-03-02] MEDS ORDERED: ALUMINUM/MAGNESIUM SUSP 30 ML UDC PO PRN (02:48)
[2023-03-02] MEDS ORDERED: BISMUTH SUBSALICYLATE LIQD 236 ML PO PRN (02:48)
[2023-03-02] MEDS ORDERED: ACETAMINOPHEN 325 MG TAB PO PRN (02:48)
[2023-03-02] MEDS ORDERED: hydrOXYzine HCl 25 MG TAB PO PRN ×2 (02:48)
[2023-03-02] MEDS ORDERED: SODIUM CHLORIDE 0.65% NA SOLN 45 ML (OCEAN) PRN (02:48)
--- NOTE | 2023-03-02 14:15 | History & Physical ---
Date of Service March 02, 2023 Impression / Recommendations Impression Cheko is a 27 year old woman with a history of bipolar type II disorder, childhood trauma, and self-harming behaviors who was admitted for SI with plan, increased self-harm and rehearsal behaviors of trying to stab herself with scissors. Diagnostically consistent with bipolar type II current depressive episode versus major depressive episode versus thyroid component given elevated TSH as well as generalized anxiety disorder, cluster B traits/BPD versus complex trauma, cannabis-induced mood symptoms and possible ADHD component with increased impulsivity. She is deemed in need of psychiatric hospitalization for diagnostic clarification, safety and stabilization, medication management and development of further coping skills. She is on a 302 commitment. Discussed medication treatment options in detail. Discussed risks, benefits and alternatives. Patient would like to start and consented to clonidine for impulsivity if ADHD present, cannabis-withdrawal symptoms and off-label for anxiety as well as increasing the dose of fluoxetine for depression and anxiety and increasing the dose of lamictal for mood stabilization. Reviewed side effects including but not limited to: GI, CONWAY, sexual side effects, and counseled on black box warning of potential for emergence of or increased SI and need to let staff know should this occur or should they feel unsafe with fluoxetine; low BP, dizziness, fatigue with clonidine; patricia-hipolito rash, need for consistent use or to stop and return to lowest dose with lamictal. Discussed cannabis use. She is precontemplative about making any changes to her use. (1) Bipolar 2 disorder, major depressive episode: (2) Suicidal ideation: (3) Anxiety: (4) Cannabis use with anxiety disorder: (5) Non-suicidal self-harm as coping mechanism: (6) HTN (hypertension): (7) Diabetes mellitus: (8) TSH elevation: Plan 03/02/2023: The patient was admitted to the [facility] ([facility] mental health unit) on q15 min checks (behavioral with suicide precautions) for safety. The patient will participate in group, recreational, and milieu therapies and will be offered additional individual and family sessions as clinically appropriate. * Increase fluoxetine to 60mg qd * Start clonidine 0.1mg qAM * Increase lamictal to 200mg qd * Free T4 level tomorrow Inventory Assets Strengths: supportive relationships, hx of outpatient stability Needs: safety and stabilization, medication adjustment, additional coping skills, increased outpatient services Suicide Risk Level Suicide Risk Level: High-Moderate (q15 min suicide checks) (severe depression with SI with plan prior to admission but feels safe in the hospital, able to safety contract and agrees to let nursing/staff know should they develop plan, intent or feel unable to remain safe. ) Risk Factors Assessment Male: No : Yes Do You Have Access To A Gun?: No Health Problems: Yes Mental Health Diagnoses: Yes Previous Attempt: Yes Family History of Suicide: No Previous Psychiatric Hospitalization: Yes Protective Factors Assessment Responsible for Young Children: Yes Employed: Yes ([employer]) Stable Relationships: Yes Supportive Family: Yes Psychiatric History Identifying Data CHEKO SAMUELS is a 27-year-old F who currently lives in [place] in an apartment with her two children and her boyfriend, has a history of bipolar type II, depression, and was admitted on 03/02/23 02:48 on a 302 involuntary commitment for SI with plan of walking into traffic and rehearsal behaviors of trying to cut herself with scissors. Chief Complaint "I was just really stressed and I made a comment and it got blown out of proportion". History of Present Illness Cheko presented to the hospital for SI with plan of jumping into traffic. She notes that "my car got repo'd and I lost my cr*p" and "I just didn't want to exist anymore and said I just wanted to throw myself in front of a truck". She recalls saying "I hate myself, I'm going to kill myself". During this time she felt distressed and impulsively tried to stab herself in the leg using scissors but her boyfriend pulled them away. She was also "smacking myself in my face" which she states "I do that sometimes when I can't control things and I have to get the anger out some way". She describes all this occurred in the context of stressors including her car getting "repo'd" yesterday, her job, financial stress, deciding if they are going move or not, questioning decision of her kids school change, and managing her kids activities. She is very tearful during the interview, requesting to go home. She notes she made a statement and it got blown out of proportion but that she doesn't want to and has many reasons for living and lot of things she's looking forward to. However, she also recognizes that her mood has been much worse over the last few weeks. Over the last 2-3 weeks she's been a lot more depressed, anxious with more racing thoughts (like "why are you so stupid", "why are you so dumb" "why don't you just "), not thinking as clearly/poor concentration, more impulsive, sleep has been "ok" about 8 hours per night but sporadic with frequent awakenings but can fall back asleep fairly easily, increased appetite (overeating due to stress). She has been experiencing chronic intermittent SI for most of her life but typically passive SI, it increased in context of stressors yesterday. Kalli with a lot of her stressors and emotional symptoms by smoking medical marijuana "all day". She is currently prescribed: Vraylar 3mg qd (has been taking this for 3-4 months, no benefits but also no side effects), Prozac 40mg qd (about 1 year, no benefits nor side effects), lamictal 125mg qd (has been on this for years, hasn't noticed benefits nor side effects). She wonders if she may also have ADHD as "I have the attention span of a small sloth". Psychiatric ROS notable for no current nor history of symptoms of stu, psychosis nor eating disorder. History of self-harm (smacking herself in face), history of trauma. Past Psychiatric History Current Psychiatric Diagnosis: unspecified depressive d/o Outpatient Services: [facility] for psychiatry with Chelsey Bhatt; therapy in the past at [facility] and [facility] psych clinic Previous Psych Admissions: 2009 at [facility] Do You Have Access To A Gun?: No History of Previous Suicide Attempt: Yes (2008) Describe Attempts in the Past: recalls OD of melatonin, tried hanging at age 14 Past Medication Trials: hx Wellbutrin (can't recall much about this), hx trazodone, hx buspar Past Head Trauma/Neuro History History of Concussion/Seizure: No Allergies Allergy/AdvReac Type Severity Reaction Status Date / Time banana Allergy Severe THROAT Verified 03/02/23 14:52 SWELLING Penicillins Allergy Mild Verified 03/02/23 14:52 Home Medications Medication Instructions Recorded Confirmed Type levonorgestrel 21 mcg/24 hours (8 1 device intrauterine UD 06/26/19 03/02/23 History yrs) 52 mg intrauterine device (Mirena) lamotrigine 25 mg tablet 25 mg PO QAM 04/02/21 03/02/23 History lancets 30 gauge (OneTouch Delica #100 ea 06/02/22 03/02/23 Rx Plus Lancet) blood sugar diagnostic #100 ea 11/06/22 03/02/23 Rx blood-glucose meter (OneTouch #1 ea 11/06/22 03/02/23 Rx Ultra2 Meter) fluoxetine 40 mg capsule 40 mg PO QAM 11/06/22 03/02/23 History lamotrigine 100 mg tablet 100 mg PO QAM 11/06/22 03/02/23 History metformin 500 mg tablet,extended 1,000 mg PO QAM 11/06/22 03/02/23 History release 24 hr dulaglutide 0.75 mg/0.5 mL See Rx Instructions .Route 02/04/23 03/02/23 Rx subcutaneous pen injector .COMPLEX #6 mL (Trulicity) cariprazine 3 mg capsule (Vraylar) 3 mg 03/02/23 History lisinopril 5 mg tablet 5 mg PO QAM 03/02/23 03/02/23 History Family History Family History of: Bipolar (possibly in biological father) Alcohol History Hx of Alcohol Use Over the Past 12 Months: Yes (1-1.5 drinks daily) AUDIT Total Score: 4 Drinks 1-1.5 drinks each evening, she feels like she has a glass of wine out of habit while making dinner but denies anything she likes about it or doesn't like. She feels comfortable with her current use. Denies any history of negative consequences. Smoking Use Have You Smoked or Used Tobacco Products in the Last 30 Days: No Smoking Status: Never smoker Substance History Hx of Prescription Med Misuse Over the Past 12 Months: No Hx of Over the Counter Med Misuse Over the Past 12 Months: No Hx of Inhalent Misuse Over the Past 12 Months: No Hx of Organic Substance Use Over the Past 12 Months: Yes (medical marijuana) Hx of Illegal Substances/Street Drug Use Over Past 12 Months: No Problems as a Result of Past Substance Use: None Identified Cannabis via vaping likes that 'I don't exist anymore, I'm not as irritable, less anxious thoughts, and kind of slows everything down and makes me want to be active in my kids life, I'm more patient, it makes me a better mom". Doesn't like that sometimes it can exacerbate anxiety but most of the time it doesn't. Uses it throughout the day. Has been using it this way since November. Personal History Living Arrangements: Home Childhood: Mom is still living and supportive, her step-father in 2020. She doesn't have a relationship with biological dad. Biological brother is in [place], she has no relationship with him. 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) with severe dysplasia leep x 2 , last in 06/28 GERD (gastroesophageal reflux disease) History of abnormal menstrual cycle History of gestational diabetes History of hypertension History of menorrhagia History of varicella Hypertension affecting in third trimester IUD (intrauterine device) in place Mirena placed 12/26 Leiomyoma Non-suicidal self-harm as coping mechanism PTSD (post-traumatic stress disorder) Surgical History History of kidney surgery S/P section S/P LEEP (loop electrosurgical excision procedure) x 2, last in 2018 S/P tonsillectomy S/P tooth extraction Family History Father Diabetes Testicular cancer Grandmother (Maternal) Dyslipidemia Grandmother (Paternal) Breast cancer Denies family history of Colon cancer Ovarian cancer Prostate cancer Myocardial infarction Social History Smoking Status: Never smoker Age Started Using Tobacco: 16; Age Quit Using Tobacco: 24; Cigarettes Per Day: 2+ per day (started with quarentine); Second Hand Exposure: No; Do You Dip or Chew Tobacco: No; Hx Alcohol Use: Yes Alcohol Intake Frequency: 2-3 x/Week Hx Substance Use: Yes Prescribed Medications: Marijuana Last Used Substance: Days (ago) Last Used Substance Other:: 1 Preferred Language: Tajik Communication Ability: Effective Visual Impairment: No Limitations Hearing Ability: Normal Track Greaser Required: No Beliefs That Will Affect Care: None marital status: Single Current Living Situation: Family and Significant Other Current Living Situation Comment: Lives with children current occupational status: employed 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 Feels Safe at Home: Yes Dental Care, Regularly: Yes Physical Activity Frequency: 1-2 Times per Week Seatbelt Use: always Sunscreen Use: Yes Gender Identity: Female Assistive Devices: Glasses Review of Systems Review of Systems: All systems reviewed & are unremarkable except as noted in HPI & below (headache ) Physical Exam Psychiatric: Orientation: alert and oriented x 3 Apperance: appropriately dressed and appropriately groomed Eye Contact: good eye contact Motor B ehavior: no abnormal motor movements Speech: normal rate/rhythm/volume of speech Affect: + depressed affect, + anxious affect and + tearful affect Mood: + depressed mood and + anxious mood Thought Process: goal directed thought process Thought Content: reality based without delusions Suicidal Thoughts: denies suicidal thoughts (passive today but with plan prior to admission), denies suicidal plan (none for in the hospital) and denies suicidal intent Homicidal Thoughts: denies homicidal thoughts Hallucinations: no auditory hallucinations and no visual hallucinations Cognition: recent memory grossly intact, remote memory grossly intact, attention grossly intact and language grossly intact Estimated Intelligence: consistent with education level Insight: + limited insight Judgment: + limited judgement Vital Signs (Past 24 Hours): Last Vital Signs Temp 36.6 C 03/02/23 06:34 Pulse 75 03/02/23 06:34 Resp 16 03/02/23 06:34 BP 136/87 03/02/23 06:34 Pulse Ox 97 03/02/23 03:19 O2 Del Method Room Air 03/02/23 03:19 Exam Statement: A physical exam was performed in the ED by Dr. Null for the purposes of medical clearance. I accept that physical as correct and adequate for the purposes of the inpatient physical exam. Results & Data ([facility]) Laboratory Results Laboratory Results - last 24 hr 03/01/23 03/01/23 03/01/23 23:17 23:17 23:17 WBC RBC Hgb Hct MCV MCH MCHC RDW Std Deviation RDW Coeff of Marissa Plt Count MPV Immature Gran % (Auto) Neut % (Auto) Lymph % (Auto) Josephine % (Auto) Eos % (Auto) Baso % (Auto) Neut # (Auto) Lymph # (Auto) Josephine # (Auto) Eos # (Auto) Baso # (Auto) Immature Gran # (Auto) Sodium Potassium Chloride Carbon Dioxide Anion Gap BUN Creatinine Est Cr Clr Drug Dosing Est GFR ( Amer) Est GFR (Non-Af Amer) BUN/Creatinine Ratio Glucose POC Glucose Calcium Total Bilirubin AST ALT Alkaline Phosphatase Total Protein Albumin Globulin Albumin/Globulin Ratio TSH Urine Color Yellow Urine Appearance Clear Urine pH 6.0 Ur Specific [place] 1.016 Urine Protein Negative Urine Glucose (UA) Negative Urine Ketones Negative Urine Blood 2+ H Urine Nitrite Negative Urine Bilirubin Negative Urine Urobilinogen Negative Ur Leukocyte Esterase Negative Urine WBC (Auto) 1-5 Urine RBC (Auto) 0-4 U Hyaline Cast (Auto) 0 U Epithel Cells (Auto) 10-20 H Urine Bacteria (Auto) Negative POC Ur Test NEG Salicylates Urine Opiates Screen Neg Ur Methadone, Qual Neg Acetaminophen Urine Barbiturates Neg Ur Phencyclidine (PCP) Neg U Amphetamin/Meth Scrn Neg MDMA (Ecstasy) Screen Neg U Benzodiazepines Scrn Neg Ur Cocaine Metabolite Neg U Marijuana (THC) Screen Pos H U Marijuana THC Carboxy Drug Screen Comment Ethyl Alcohol mg/dL SARS-CoV-2, RNA, NAAT 03/01/23 03/01/23 03/01/23 23:17 23:18 23:38 WBC 15.22 H RBC 4.89 Hgb 14.0 Hct 40.4 MCV 82.6 MCH 28.6 MCHC 34.7 RDW Std Deviation 37.7 RDW Coeff of Marissa 12.5 Plt Count 384 MPV 10.2 Immature Gran % (Auto) 0.7 Neut % (Auto) 63.2 Lymph % (Auto) 26.0 Josephine % (Auto) 6.3 Eos % (Auto) 3.2 Baso % (Auto) 0.6 Neut # (Auto) 9.64 H Lymph # (Auto) 3.95 H Josephine # (Auto) 0.96 H Eos # (Auto) 0.48 Baso # (Auto) 0.09 Immature Gran # (Auto) 0.10 Sodium Potassium Chloride Carbon Dioxide Anion Gap BUN Creatinine Est Cr Clr Drug Dosing Est GFR ( Amer) Est GFR (Non-Af Amer) BUN/Creatinine Ratio Glucose POC Glucose Calcium Total Bilirubin AST ALT Alkaline Phosphatase Total Protein Albumin Globulin Albumin/Globulin Ratio TSH Urine Color Urine Appearance Urine pH Ur Specific [place] Urine Protein Urine Glucose (UA) Urine Ketones Urine Blood Urine Nitrite Urine Bilirubin Urine Urobilinogen Ur Leukocyte Esterase Urine WBC (Auto) Urine RBC (Auto) U Hyaline Cast (Auto) U Epithel Cells (Auto) Urine Bacteria (Auto) POC Ur Test Salicylates Urine Opiates Screen Ur Methadone, Qual Acetaminophen Urine Barbiturates Ur Phencyclidine (PCP) U Amphetamin/Meth Scrn MDMA (Ecstasy) Screen U Benzodiazepines Scrn Ur Cocaine Metabolite U Marijuana (THC) Screen U Marijuana THC Carboxy Pending Drug Screen Comment Pending Ethyl Alcohol mg/dL SARS-CoV-2, RNA, NAAT NEGATIVE 03/01/23 03/01/23 03/01/23 23:38 23:38 23:38 WBC RBC Hgb Hct MCV MCH MCHC RDW Std Deviation RDW Coeff of Marissa Plt Count MPV Immature Gran % (Auto) Neut % (Auto) Lymph % (Auto) Josephine % (Auto) Eos % (Auto) Baso % (Auto) Neut # (Auto) Lymph # (Auto) Josephine # (Auto) Eos # (Auto) Baso # (Auto) Immature Gran # (Auto) Sodium 136 Potassium 3.8 Chloride 101 Carbon Dioxide 26 Anion Gap 9 BUN 12 Creatinine 0.87 Est Cr Clr Drug Dosing 121.4 Est GFR ( Amer) 104.3 Est GFR (Non-Af Amer) 90.0 BUN/Creatinine Ratio 13.8 Glucose 138 H POC Glucose Calcium 9.6 Total Bilirubin 0.5 AST 16 ALT 24 Alkaline Phosphatase 68 Total Protein 7.3 Albumin 4.5 Globulin 2.8 Albumin/Globulin Ratio 1.6 TSH 5.067 H Urine Color Urine Appearance Urine pH Ur Specific [place] Urine Protein Urine Glucose (UA) Urine Ketones Urine Blood Urine Nitrite Urine Bilirubin Urine Urobilinogen Ur Leukocyte Esterase Urine WBC (Auto) Urine RBC (Auto) U Hyaline Cast (Auto) U Epithel Cells (Auto) Urine Bacteria (Auto) POC Ur Test Salicylates < 3.0 L Urine Opiates Screen Ur Methadone, Qual Acetaminophen < 3 L Urine Barbiturates Ur Phencyclidine (PCP) U Amphetamin/Meth Scrn MDMA (Ecstasy) Screen U Benzodiazepines Scrn Ur Cocaine Metabolite U Marijuana (THC) Screen U Marijuana THC Carboxy Drug Screen Comment Ethyl Alcohol mg/dL SARS-CoV-2, RNA, NAAT 03/01/23 03/01/23 03/02/23 23:38 23:41 12:13 WBC RBC Hgb Hct MCV MCH MCHC RDW Std Deviation RDW Coeff of Marissa Plt Count MPV Immature Gran % (Auto) Neut % (Auto) Lymph % (Auto) Josephine % (Auto) Eos % (Auto) Baso % (Auto) Neut # (Auto) Lymph # (Auto) Josephine # (Auto) Eos # (Auto) Baso # (Auto) Immature Gran # (Auto) Sodium Potassium Chloride Carbon Dioxide Anion Gap BUN Creatinine Est Cr Clr Drug Dosing Est GFR ( Amer) Est GFR (Non-Af Amer) BUN/Creatinine Ratio Glucose POC Glucose 144 H 123 H Calcium Total Bilirubin AST ALT Alkaline Phosphatase Total Protein Albumin Globulin Albumin/Globulin Ratio TSH Urine Color Urine Appearance Urine pH Ur Specific [place] Urine Protein Urine Glucose (UA) Urine Ketones Urine Blood Urine Nitrite Urine Bilirubin Urine Urobilinogen Ur Leukocyte Esterase Urine WBC (Auto) Urine RBC (Auto) U Hyaline Cast (Auto) U Epithel Cells (Auto) Urine Bacteria (Auto) POC Ur Test Salicylates Urine Opiates Screen Ur Methadone, Qual Acetaminophen Urine Barbiturates Ur Phencyclidine (PCP) U Amphetamin/Meth Scrn MDMA (Ecstasy) Screen U Benzodiazepines Scrn Ur Cocaine Metabolite U Marijuana (THC) Screen U Marijuana THC Carboxy Drug Screen Comment Ethyl Alcohol mg/dL < 10.0 SARS-CoV-2, RNA, NAAT Current Inpatient Medications Current Inpatient Medications: Current Inpatient Medications Acetaminophen (Acetaminophen 325 Mg Tab) 650 mg PO Q4H PRN PRN Reason: Headache or Minor Fever Stop: 04/01/23 02:47 Al Hydrox/Mg Hydrox/Simethicone (Aluminum/Magnesium Susp 30 Ml Udc) 30 ml PO Q4H PRN PRN Reason: GI Upset Stop: 04/01/23 02:47 Bismuth Subsalicylate (Bismuth Subsalicylate Liqd 236 Ml) 15 ml PO PRN PRN PRN Reason: Loose Stool Stop: 04/01/23 02:47 Hydroxyzine HCl (Hydroxyzine Hcl 25 Mg Tab) 50 mg PO HSZ PRN PRN Reason: Insomnia Stop: 04/01/23 02:47 Hydroxyzine HCl (Hydroxyzine Hcl 25 Mg Tab) 25 mg PO Q4H PRN PRN Reason: Anxiety Stop: 04/01/23 02:47 Magnesium Hydroxide (Magnesium Hydroxide Susp 30 Ml Udc) 30 ml PO DAILY PRN PRN Reason: Constipation Stop: 04/01/23 02:47 Sodium Chloride (Sodium Chloride 0.65% Na Soln 45 Ml ([place])) 1 - 2 sprays NA PRN PRN PRN Reason: Nasal Dryness/Congestion Stop: 04/01/23 02:47
[2023-03-02] MEDS ORDERED: lamoTRIgine 25 MG TAB PO SCH (15:30)
[2023-03-02] MEDS ORDERED: FLUoxetine HCL 20 MG CAP PO SCH (15:30)
[2023-03-02] MEDS ORDERED: lamoTRIgine 100 MG TAB PO SCH (15:30)
[2023-03-02] MEDS: metFORMIN HCL ER 500 MG TABCR PO SCH (17:12)
[2023-03-02] MEDS: lisinopril 5 MG TAB PO SCH (17:13)
[2023-03-03] MEDS: FLUoxetine HCL 20 MG CAP PO SCH (08:07)
[2023-03-03] MEDS: lamoTRIgine 100 MG TAB PO SCH (08:08)
[2023-03-03] MEDS: lisinopril 5 MG TAB PO SCH (08:08)
[2023-03-03] MEDS: metFORMIN HCL ER 500 MG TABCR PO SCH (08:08)
[2023-03-03] MEDS: cloNIDine HCL 0.1 MG TAB PO SCH (08:08)
--- NOTE | 2023-03-03 16:56 | Psychiatric Progress Note ---
Date of Service March 03, 2023 Impression / Recommendations Impression Cheko is a 27 year old woman with a history of bipolar type II disorder, childhood trauma, and self-harming behaviors who was admitted for SI with plan, increased self-harm and rehearsal behaviors of trying to stab herself with scissors. Diagnostically consistent with bipolar type II current depressive episode versus major depressive episode versus thyroid component given elevated TSH as well as generalized anxiety disorder, cluster B traits/BPD versus complex trauma, cannabis-induced mood symptoms and possible ADHD component with increased impulsivity. She is deemed in need of psychiatric hospitalization for diagnostic clarification, safety and stabilization, medication management and development of further coping skills. She is on a 302 commitment. 03/03/2023: Still tearful when discussing episode of brief intrusive SI but overall she is feeling better today. Reviewed possible reasons for intrusive thoughts such as OCD versus BPD versus depression. She agrees to complete OCD and BPD screening tools that we can review tomorrow. She is pleased with medication adjustments so far. She does not feel a safe tray is needed for meals given the suicidal thoughts were ego-dystonic, she did not act on the thoughts, feels comfortable talking with providers/RNs/therapists if this were to re-occur and was able to use distraction quickly to get the thoughts out of her mind. (1) Bipolar 2 disorder, major depressive episode: (2) Suicidal ideation: (3) Anxiety: (4) Cannabis use with anxiety disorder: (5) Non-suicidal self-harm as coping mechanism: (6) HTN (hypertension): (7) Diabetes mellitus: (8) TSH elevation: Plan 03/03/2023: Continue current medications and tx plan. Provided [place] BPD screen and Y-BOCS to complete. 03/02/2023: The patient was admitted to the [facility] ([facility] mental health unit) on q15 min checks (behavioral with suicide precautions) for safety. The patient will participate in group, recreational, and milieu therapies and will be offered additional individual and family sessions as clinically appropriate. * Increase fluoxetine to 60mg qd * Start clonidine 0.1mg qAM * Increase lamictal to 200mg qd * Free T4 level tomorrow Inventory Assets Strengths: supportive relationships, hx of outpatient stability Needs: safety and stabilization, medication adjustment, additional coping skills, increased outpatient services Suicide Risk Level Suicide Risk Level: High-Moderate (q15 min suicide checks) (severe depression with SI with plan prior to admission but feels safe in the hospital, able to safety contract and agrees to let nursing/staff know should they develop plan, intent or feel unable to remain safe. ) Suicide Risk Level Comments: Risk Factors Assessment Male: No : Yes Do You Have Access To A Gun?: No Health Problems: Yes Mental Health Diagnoses: Yes Previous Attempt: Yes Family History of Suicide: No Previous Psychiatric Hospitalization: Yes Protective Factors Assessment Responsible for Young Children: Yes Employed: Yes ([employer]) Stable Relationships: Yes Supportive Family: Yes Interval History Identifying Information CHEKO SAMUELS is a 27-year-old F who currently lives in [place] in an apartment with her two children and her boyfriend, has a history of bipolar type II, depression, and was admitted on 03/02/23 02:48 on a 302 involuntary commitment for SI with plan of walking into traffic and rehearsal behaviors of trying to cut herself with scissors. Chief Complaint "I'm ok". Review of Systems Sleep Information Total Hours of Sleep: 6.5 Sleep Comments: Meal Information Percent Meal Consumed - Breakfast: 100 Percent Meal Consumed - Lunch: 100 Percent Meal Consumed - Dinner: 75 Subjective Subjective Patient was seen & assessed and interval progress reviewed with treatment team nursing and social work. Attending groups. Tearful in discussing that she had intrusive SI with thoughts of breaking her plate to hurt herself during lunch. This thought was only present for about 2 minutes and then she was able to distract herself. States she didn't want to have this thought and that it was ego-dystonic. Describes that she's had this type of ego-dystonic intrusive SI for years and recalls a few years ago having "the best day" with her family in [place] and then having the thought of jumping out of the car to jump over the bridge they were driving on and how distressing and disturbing these thoughts are. She feels like that incident just like today at lunch "come out of no where" and don't fit with her mood. Reviewed strategies to cope with these thoughts and she finds distraction helpful. No new side effects from medications. Physical Exam Psychiatric Orientation: alert and oriented x 3 Apperance: appropriately dressed and appropriately groomed Eye Contact: good eye contact Motor Behavior: no abnormal motor movements Speech: normal rate/rhythm/volume of speech Affect: + anxious affect and + tearful affect Mood: + depressed mood and + anxious mood Thought Process: goal directed thought process Thought Content: reality based without delusions Suicidal Thoughts: denies suicidal plan (none for in the hospital) and denies suicidal intent; + reports suicidal thoughts (brief intrusive thought at lunch) Homicidal Thoughts: denies homicidal thoughts Hallucinations: no auditory hallucinations and no visual hallucinations Cognition: recent memory grossly intact, remote memory grossly intact, attention grossly intact and language grossly intact Estimated Intelligence: consistent with education level Insight: + limited insight Judgment: + limited judgement Vital Signs (Past 24 Hours) Last Vital Signs Temp 36.7 C 03/03/23 06:36 Pulse 71 03/03/23 06:37 Resp 16 03/03/23 06:36 BP 120/82 03/03/23 06:37 Pulse Ox 97 03/02/23 03:19 O2 Del Method Room Air 03/02/23 03:19 Results & Data (U) Laboratory Results Laboratory Results - last 24 hr 03/03/23 03/03/23 03/03/23 08:12 08:34 08:34 POC Glucose 136 H Free T4 0.85 Free T3 3.72 03/03/23 13:45 POC Glucose 147 H Free T4 Free T3 Current Inpatient Medications Current Inpatient Medications: Current Inpatient Medications Acetaminophen (Acetaminophen 325 Mg Tab) 650 mg PO Q4H PRN PRN Reason: Headache or Minor Fever Stop: 04/01/23 02:47 Last Admin: 03/02/23 17:34 Dose: 650 mg Al Hydrox/Mg Hydrox/Simethicone (Aluminum/Magnesium Susp 30 Ml Udc) 30 ml PO Q4H PRN PRN Reason: GI Upset Stop: 04/01/23 02:47 Bismuth Subsalicylate (Bismuth Subsalicylate Liqd 236 Ml) 15 ml PO PRN PRN PRN Reason: Loose Stool Stop: 04/01/23 02:47 Clonidine HCl (Clonidine Hcl 0.1 Mg Tab) 0.1 mg PO QAM JOHN Stop: 04/02/23 08:59 Last Admin: 03/03/23 08:08 Dose: 0.1 mg Fluoxetine HCl (Fluoxetine Hcl 20 Mg Cap) 60 mg PO QAM JOHN Stop: 04/02/23 08:59 Last Admin: 03/03/23 08:07 Dose: 60 mg Hydroxyzine HCl (Hydroxyzine Hcl 25 Mg Tab) 50 mg PO HSZ PRN PRN Reason: Insomnia Stop: 04/01/23 02:47 Hydroxyzine HCl (Hydroxyzine Hcl 25 Mg Tab) 25 mg PO Q4H PRN PRN Reason: Anxiety Stop: 04/01/23 02:47 Lamotrigine (Lamotrigine 100 Mg Tab) 200 mg PO QAM JOHN Stop: 04/02/23 08:59 Last Admin: 03/03/23 08:08 Dose: 200 mg Lisinopril (Lisinopril 5 Mg Tab) 5 mg PO QAM JOHN Stop: 04/01/23 15:29 Last Admin: 03/03/23 08:08 Dose: 5 mg Magnesium Hydroxide (Magnesium Hydroxide Susp 30 Ml Udc) 30 ml PO DAILY PRN PRN Reason: Constipation Stop: 04/01/23 02:47 Metformin HCl (Metformin Hcl Er 500 Mg Tabcr) 1,000 mg PO DAILY JOHN Stop: 04/01/23 15:29 Last Admin: 03/03/23 08:08 Dose: 1,000 mg Sodium Chloride (Sodium Chloride 0.65% Na Soln 45 Ml ([place])) 1 - 2 sprays NA PRN PRN PRN Reason: Nasal Dryness/Congestion Stop: 04/01/23 02:47 Mental Health & Subst Abuse Tx Psychiatrist Name of Psychiatrist: Mari Shrestha PA-C Psychiatrist's Date Of Appointment With Psychiatric Provider: 03/16/23 Time of Appointment with Psychiatrist: 1:00 PM Psychiatric Appointment Comment: [address], [place] [address] Therapist Name of Therapist: Paola Cosby Therapist's Date of Therapist Appointment: 03/15/23 Time of Therapist Appointment: 3:30 PM Therapy Appointment Comment: [address], [address], [place] [address] Heddler Name of Heddler: NA Post Discharge Appointments Primary Care Physician Name Of Family Doctor/PCP: CHICHO Lubin [facility] Date of Future Appointment with PCP: 03/10/23 Time of Appointment with PCP: 9:20 AM Provider Appointment Comment: [address], [place] [address] Contact Information Discharge Discharge Address: [facility] [address], [place] [id number]
[2023-03-04] MEDS: cloNIDine HCL 0.1 MG TAB PO SCH (07:25)
[2023-03-04] MEDS: FLUoxetine HCL 20 MG CAP PO SCH (07:26)
[2023-03-04] MEDS: lisinopril 5 MG TAB PO SCH (07:27)
[2023-03-04] MEDS: lamoTRIgine 100 MG TAB PO SCH (07:27)
[2023-03-04] MEDS: metFORMIN HCL ER 500 MG TABCR PO SCH (07:27)
[2023-03-04 09:19] LABS: Marijuana Quant, GCMS Urine 240 ng/mL (<5)
--- NOTE | 2023-03-04 15:22 | Psychiatric Progress Note ---
Date of Service March 04, 2023 Impression / Recommendations Impression Cheko is a 27 year old woman with a history of bipolar type II disorder, childhood trauma, and self-harming behaviors who was admitted for SI with plan, increased self-harm and rehearsal behaviors of trying to stab herself with scissors. Diagnostically consistent with bipolar type II current depressive episode versus major depressive episode versus thyroid component given elevated TSH as well as generalized anxiety disorder, cluster B traits/BPD versus complex trauma, cannabis-induced mood symptoms and possible ADHD component with increased impulsivity. She is deemed in need of psychiatric hospitalization for diagnostic clarification, safety and stabilization, medication management and development of further coping skills. She is on a 302 commitment. 03/04/2023: Mood improving today and denies SI. No intrusive thoughts today nor any thoughts or urges for self-harm. Reviewed symtpom checklists she completed and discussed adding OCD to her diagnoses given the obsessions and compulsions she experiences and the amount of distress and time these can occupy. Reviewed strategies to cope with OCD thoughts include externalizing these and using distraction. Thought TSH was elevated free T3 and free T4 were normal. (1) Bipolar 2 disorder, major depressive episode: (2) Suicidal ideation: (3) Anxiety: (4) Cannabis use with anxiety disorder: (5) Non-suicidal self-harm as coping mechanism: (6) HTN (hypertension): (7) Diabetes mellitus: (8) TSH elevation: Free T3 and free T4 were normal, recommend follow-up with PCP (9) Obsessive compulsive disorder: Plan 03/04/2023: Continue current medications and tx plan. 03/03/2023: Continue current medications and tx plan. Provided [place] BPD screen and Y-BOCS to complete. 03/02/2023: The patient was admitted to the [facility] ([facility] mental health [facility]) on q15 min checks (behavioral with suicide precautions) for safety. The patient will participate in group, recreational, and milieu therapies and will be offered additional individual and family sessions as clinically appropriate. * Increase fluoxetine to 60mg qd * Start clonidine 0.1mg qAM * Increase lamictal to 200mg qd * Free T4 level tomorrow Inventory Assets Strengths: supportive relationships, hx of outpatient stability Needs: safety and stabilization, medication adjustment, additional coping skills, increased outpatient services Suicide Risk Level Suicide Risk Level: Moderate (q15 min suicide checks) (severe depression with SI with plan prior to admission but mood improving, denies SI and feels safe in the hospital, able to safety contract and agrees to let nursing/staff know should they develop plan, intent or feel unable to remain safe. ) Suicide Risk Level Comments: Risk Factors Assessment Male: No : Yes Do You Have Access To A Gun?: No Health Problems: Yes Mental Health Diagnoses: Yes Previous Attempt: Yes Family History of Suicide: No Previous Psychiatric Hospitalization: Yes Protective Factors Assessment Responsible for Young Children: Yes Employed: Yes ([employer]) Stable Relationships: Yes Supportive Family: Yes Interval History Identifying Information CHEKO SAMUELS is a 27-year-old F who currently lives in [place] in an apartment with her two children and her boyfriend, has a history of bipolar type II, depression, and was admitted on 03/02/23 02:48 on a 302 involuntary commitment for SI with plan of walking into traffic and rehearsal behaviors of trying to cut herself with scissors. Chief Complaint "I feel really good today". Review of Systems Sleep Information Total Hours of Sleep: 6 Meal Information Percent Meal Consumed - Breakfast: 100 Percent Meal Consumed - Lunch: 100 Percent Meal Consumed - Dinner: 100 Subjective Subjective Patient was seen & assessed and interval progress reviewed with treatment team nursing and social work. Attending groups and social with peers. Cheko reports today is one of the better days she's had in a long time. She is not noticing any side effects from her medications and thinks the adjustments are helping. She initially felt overwhelmed filling out the Y-BOCS as it brought up more intrusive thoughts but she was later able to complete it and notes that she recognizes maybe all this time these ego-dystonic thoughts were from OCD not due to some internal flaw or altered thinking. We reviewed [place] BPD screen which was also positive for some criteria but negative for others. Discussed options to incorporate DBT and ERP into her outpatient therapy. Physical Exam Psychiatric Orientation: alert and oriented x 3 Apperance: appropriately dressed and appropriately groomed Eye Contact: good eye contact Motor Behavior: no abnormal motor movements Speech: normal rate/rhythm/volume of speech Affect: + anxious affect Mood: + anxious mood Thought Process: goal directed thought process Thought Content: reality based without delusions Suicidal Thoughts: denies suicidal thoughts, denies suicidal plan and denies suicidal intent Homicidal Thoughts: denies homicidal thoughts Hallucinations: no auditory hallucinations and no visual hallucinations Cognition: recent memory grossly intact, remote memory grossly intact, attention grossly intact and language grossly intact Estimated Intelligence: consistent with education level Insight: + fair insight Judgment: + fair judgement Vital Signs (Past 24 Hours) Last Vital Signs Temp 36.6 C 03/04/23 06:00 Pulse 58 L 03/04/23 07:01 Resp 16 03/04/23 06:00 BP 120/82 03/03/23 06:37 Pulse Ox 97 03/02/23 03:19 O2 Del Method Room Air 03/02/23 03:19 Results & Data ([facility]) Laboratory Results Laboratory Results - last 24 hr 03/01/23 03/04/23 23:17 06:35 POC Glucose 134 H U Marijuana THC Carboxy 240 H Drug Screen Comment SEE NOTE Current Inpatient Medications Current Inpatient Medications: Current Inpatient Medications Acetaminophen (Acetaminophen 325 Mg Tab) 650 mg PO Q4H PRN PRN Reason: Headache or Minor Fever Stop: 04/01/23 02:47 Last Admin: 03/02/23 17:34 Dose: 650 mg Al Hydrox/Mg Hydrox/Simethicone (Aluminum/Magnesium Susp 30 Ml Udc) 30 ml PO Q4H PRN PRN Reason: GI Upset Stop: 04/01/23 02:47 Bismuth Subsalicylate (Bismuth Subsalicylate Liqd 236 Ml) 15 ml PO PRN PRN PRN Reason: Loose Stool Stop: 04/01/23 02:47 Clonidine HCl (Clonidine Hcl 0.1 Mg Tab) 0.1 mg PO QAM JOHN Stop: 04/02/23 08:59 Last Admin: 03/04/23 07:25 Dose: 0.1 mg Fluoxetine HCl (Fluoxetine Hcl 20 Mg Cap) 60 mg PO QAM JOHN Stop: 04/02/23 08:59 Last Admin: 03/04/23 07:26 Dose: 60 mg Hydroxyzine HCl (Hydroxyzine Hcl 25 Mg Tab) 50 mg PO HSZ PRN PRN Reason: Insomnia Stop: 04/01/23 02:47 Hydroxyzine HCl (Hydroxyzine Hcl 25 Mg Tab) 25 mg PO Q4H PRN PRN Reason: Anxiety Stop: 04/01/23 02:47 Lamotrigine (Lamotrigine 100 Mg Tab) 200 mg PO QAM JOHN Stop: 04/02/23 08:59 Last Admin: 03/04/23 07:27 Dose: 200 mg Lisinopril (Lisinopril 5 Mg Tab) 5 mg PO QAM JOHN Stop: 04/01/23 15:29 Last Admin: 03/04/23 07:27 Dose: 5 mg Magnesium Hydroxide (Magnesium Hydroxide Susp 30 Ml Udc) 30 ml PO DAILY PRN PRN Reason: Constipation Stop: 04/01/23 02:47 Metformin HCl (Metformin Hcl Er 500 Mg Tabcr) 1,000 mg PO DAILY JOHN Stop: 04/01/23 15:29 Last Admin: 03/04/23 07:27 Dose: 1,000 mg Sodium Chloride (Sodium Chloride 0.65% Na Soln 45 Ml ([place])) 1 - 2 sprays NA PRN PRN PRN Reason: Nasal Dryness/Congestion Stop: 04/01/23 02:47 Mental Health & Subst Abuse Tx Psychiatrist Name of Psychiatrist: Mari Shrestha PA-C Psychiatrist's Date Of Appointment With Psychiatric Provider: 03/16/23 Time of Appointment with Psychiatrist: 1:00 PM Psychiatric Appointment Comment: [address], [place] [address] Therapist Name of Therapist: Paola Cosby Therapist's Date of Therapist Appointment: 03/15/23 Time of Therapist Appointment: 3:30 PM Therapy Appointment Comment: [address] [facility], [address], [place] [address] Strip Deburrer Name of Strip Deburrer: NA Post Discharge Appointments Primary Care Physician Name Of Family Doctor/PCP: CHICHO Lubin Primary [facility] Date of Future Appointment with PCP: 03/10/23 Time of Appointment with PCP: 9:20 AM Provider Appointment Comment: [address], [place] [address] Contact Information Discharge Discharge Address: [address], [place] [address]
[2023-03-05] MEDS: cloNIDine HCL 0.1 MG TAB PO SCH (08:44)
[2023-03-05] MEDS: FLUoxetine HCL 20 MG CAP PO SCH (08:45)
[2023-03-05] MEDS: lisinopril 5 MG TAB PO SCH (08:48)
[2023-03-05] MEDS: lamoTRIgine 100 MG TAB PO SCH (08:48)
[2023-03-05] MEDS: metFORMIN HCL ER 500 MG TABCR PO SCH (08:49)
--- NOTE | 2023-03-05 09:33 | Discharge Summary ---
Date of Service March 05, 2023 History of Present Illness As per Dr. Brown on admission: Cheko presented to the hospital for SI with plan of jumping into traffic. She notes that "my car got repo'd and I lost my cr*p" and "I just didn't want to exist anymore and said I just wanted to throw myself in front of a truck". She recalls saying "I hate myself, I'm going to kill myself". During this time she felt distressed and impulsively tried to stab herself in the leg using scissors but her boyfriend pulled them away. She was also "smacking myself in my face" which she states "I do that sometimes when I can't control things and I have to get the anger out some way". She describes all this occurred in the context of stressors including her car getting "repo'd" yesterday, her job, financial stress, deciding if they are going move or not, questioning decision of her kids school change, and managing her kids activities. She is very tearful during the interview, requesting to go home. She notes she made a statement and it got blown out of proportion but that she doesn't want to and has many reasons for living and lot of things she's looking forward to. However, she also recognizes that her mood has been much worse over the last few weeks. Over the last 2-3 weeks she's been a lot more depressed, anxious with more racing thoughts (like "why are you so stupid", "why are you so dumb" "why don't you just "), not thinking as clearly/poor concentration, more impulsive, sleep has been "ok" about 8 hours per night but sporadic with frequent awakenings but can fall back asleep fairly easily, increased appetite (overeating due to stress). She has been experiencing chronic intermittent SI for most of her life but typically passive SI, it increased in context of stressors yesterday. Kalli with a lot of her stressors and emotional symptoms by smoking medical marijuana "all day". She is currently prescribed: Vraylar 3mg qd (has been taking this for 3-4 months, no benefits but also no side effects), Prozac 40mg qd (about 1 year, no benefits nor side effects), lamictal 125mg qd (has been on this for years, hasn't noticed benefits nor side effects). She wonders if she may also have ADHD as "I have the attention span of a small sloth". Psychiatric ROS notable for no current nor history of symptoms of stu, psychosis nor eating disorder. History of self-harm (smacking herself in face), history of trauma. Physical Exam Psychiatric See admission H&P and DOD assessment. Vital Signs (Past 24 Hours) Last Vital Signs Temp 36.6 C 03/05/23 06:00 Pulse 77 03/05/23 06:00 Resp 16 03/05/23 06:00 BP 129/86 03/05/23 06:31 Pulse Ox 97 03/05/23 06:00 O2 Del Method Room Air 03/05/23 06:00 Principal Diagnosis bipolar II disorder Psychiatric Data See daily stay summary. In short, safety was maintained and the patient was cooperative with care. Medication changes included an increase in Prozac and Lamictal and they tolerated this well. A family session was held with her who was supportive and safety plan was completed prior to discharge. Day of Discharge Assessment Today the patient voices readiness for discharge. They note improvement in mood and deny thoughts to harm self or others. Thoughts remain organized and they are improved from admission. There is no evidence of psychosis. They agree to take mediations as prescribed and keep follow-up appointments. They are stable for discharge to outpatient level of care. Transition of Care Transition Of Care Record: was reviewed with the patient Advance Directives Advance Directives Information Provided: Yes Advance Directives: No Mental Health Advance Directive: No Advance Directives on File: No Living Will: No Power of Spouting Installer: No Advance Directives Reason:: Declines as Mental Health Visit. Suicide Risk Level Suicide Risk Level Comments: Suicide risk at discharge is deemed low as the patient is no longer requiring 24-hr monitoring, has a safety plan, and is free of suicidal ideation at discharge. Risk Factors Assessment Male: No : Yes Do You Have Access To A Gun?: No Health Problems: Yes Mental Health Diagnoses: Yes Previous Attempt: Yes Family History of Suicide: No Previous Psychiatric Hospitalization: Yes Protective Factors Assessment Responsible for Young Children: Yes Employed: Yes ([employer]) Stable Relationships: Yes Supportive Family: Yes Total Time Total Time Spent: Greater Than 30 Minutes Total Time Includes: Examination of the patient, Discharge Planning and Medication Reconciliation Discharge Data Lab Results 03/01/23 03/01/23 03/01/23 23:17 23:17 23:17 WBC RBC Hgb Hct MCV MCH MCHC RDW Std Deviation RDW Coeff of Marissa Plt Count MPV Immature Gran % (Auto) Neut % (Auto) Lymph % (Auto) Cochran % (Auto) Eos % (Auto) Baso % (Auto) Neut # (Auto) Lymph # (Auto) Cochran # (Auto) Eos # (Auto) Baso # (Auto) Immature Gran # (Auto) Sodium Potassium Chloride Carbon Dioxide Anion Gap BUN Creatinine Est Cr Clr Drug Dosing Est GFR ( Amer) Est GFR (Non-Af Amer) BUN/Creatinine Ratio Glucose POC Glucose Calcium Total Bilirubin AST ALT Alkaline Phosphatase Total Protein Albumin Globulin Albumin/Globulin Ratio TSH Free T4 Free T3 Urine Color Yellow Urine Appearance Clear Urine pH 6.0 Ur Specific [place] 1.016 Urine Protein Negative Urine Glucose (UA) Negative Urine Ketones Negative Urine Blood 2+ H Urine Nitrite Negative Urine Bilirubin Negative Urine Urobilinogen Negative Ur Leukocyte Esterase Negative Urine WBC (Auto) 1-5 Urine RBC (Auto) 0-4 U Hyaline Cast (Auto) 0 U Epithel Cells (Auto) 10-20 H Urine Bacteria (Auto) Negative POC Ur Test NEG Salicylates Urine Opiates Screen Neg Ur Methadone, Qual Neg Acetaminophen Urine Barbiturates Neg Ur Phencyclidine (PCP) Neg U Amphetamin/Meth Scrn Neg MDMA (Ecstasy) Screen Neg U Benzodiazepines Scrn Neg Ur Cocaine Metabolite Neg U Marijuana (THC) Screen Pos H U Marijuana THC Carboxy Drug Screen Comment Ethyl Alcohol mg/dL SARS-CoV-2, RNA, NAAT 03/01/23 03/01/23 03/01/23 23:17 23:18 23:38 WBC 15.22 H RBC 4.89 Hgb 14.0 Hct 40.4 MCV 82.6 MCH 28.6 MCHC 34.7 RDW Std Deviation 37.7 RDW Coeff of Marissa 12.5 Plt Count 384 MPV 10.2 Immature Gran % (Auto) 0.7 Neut % (Auto) 63.2 Lymph % (Auto) 26.0 Cochran % (Auto) 6.3 Eos % (Auto) 3.2 Baso % (Auto) 0.6 Neut # (Auto) 9.64 H Lymph # (Auto) 3.95 H Cochran # (Auto) 0.96 H Eos # (Auto) 0.48 Baso # (Auto) 0.09 Immature Gran # (Auto) 0.10 Sodium Potassium Chloride Carbon Dioxide Anion Gap BUN Creatinine Est Cr Clr Drug Dosing Est GFR ( Amer) Est GFR (Non-Af Amer) BUN/Creatinine Ratio Glucose POC Glucose Calcium Total Bilirubin AST ALT Alkaline Phosphatase Total Protein Albumin Globulin Albumin/Globulin Ratio TSH Free T4 Free T3 Urine Color Urine Appearance Urine pH Ur Specific [place] Urine Protein Urine Glucose (UA) Urine Ketones Urine Blood Urine Nitrite Urine Bilirubin Urine Urobilinogen Ur Leukocyte Esterase Urine WBC (Auto) Urine RBC (Auto) U Hyaline Cast (Auto) U Epithel Cells (Auto) Urine Bacteria (Auto) POC Ur Test Salicylates Urine Opiates Screen Ur Methadone, Qual Acetaminophen Urine Barbiturates Ur Phencyclidine (PCP) U Amphetamin/Meth Scrn MDMA (Ecstasy) Screen U Benzodiazepines Scrn Ur Cocaine Metabolite U Marijuana (THC) Screen U Marijuana THC Carboxy 240 H Drug Screen Comment SEE NOTE Ethyl Alcohol mg/dL SARS-CoV-2, RNA, NAAT NEGATIVE 03/01/23 03/01/23 03/01/23 23:38 23:38 23:38 WBC RBC Hgb Hct MCV MCH MCHC RDW Std Deviation RDW Coeff of Marissa Plt Count MPV Immature Gran % (Auto) Neut % (Auto) Lymph % (Auto) Cochran % (Auto) Eos % (Auto) Baso % (Auto) Neut # (Auto) Lymph # (Auto) Cochran # (Auto) Eos # (Auto) Baso # (Auto) Immature Gran # (Auto) Sodium 136 Potassium 3.8 Chloride 101 Carbon Dioxide 26 Anion Gap 9 BUN 12 Creatinine 0.87 Est Cr Clr Drug Dosing 121.4 Est GFR ( Amer) 104.3 Est GFR (Non-Af Amer) 90.0 BUN/Creatinine Ratio 13.8 Glucose 138 H POC Glucose Calcium 9.6 Total Bilirubin 0.5 AST 16 ALT 24 Alkaline Phosphatase 68 Total Protein 7.3 Albumin 4.5 Globulin 2.8 Albumin/Globulin Ratio 1.6 TSH 5.067 H Free T4 Free T3 Urine Color Urine Appearance Urine pH Ur Specific [place] Urine Protein Urine Glucose (UA) Urine Ketones Urine Blood Urine Nitrite Urine Bilirubin Urine Urobilinogen Ur Leukocyte Esterase Urine WBC (Auto) Urine RBC (Auto) U Hyaline Cast (Auto) U Epithel Cells (Auto) Urine Bacteria (Auto) POC Ur Test Salicylates < 3.0 L Urine Opiates Screen Ur Methadone, Qual Acetaminophen < 3 L Urine Barbiturates Ur Phencyclidine (PCP) U Amphetamin/Meth Scrn MDMA (Ecstasy) Screen U Benzodiazepines Scrn Ur Cocaine Metabolite U Marijuana (THC) Screen U Marijuana THC Carboxy Drug Screen Comment Ethyl Alcohol mg/dL SARS-CoV-2, RNA, NAAT 03/01/23 03/01/23 03/02/23 23:38 23:41 12:13 WBC RBC Hgb Hct MCV MCH MCHC RDW Std Deviation RDW Coeff of Marissa Plt Count MPV Immature Gran % (Auto) Neut % (Auto) Lymph % (Auto) Cochran % (Auto) Eos % (Auto) Baso % (Auto) Neut # (Auto) Lymph # (Auto) Cochran # (Auto) Eos # (Auto) Baso # (Auto) Immature Gran # (Auto) Sodium Potassium Chloride Carbon Dioxide Anion Gap BUN Creatinine Est Cr Clr Drug Dosing Est GFR ( Amer) Est GFR (Non-Af Amer) BUN/Creatinine Ratio Glucose POC Glucose 144 H 123 H Calcium Total Bilirubin AST ALT Alkaline Phosphatase Total Protein Albumin Globulin Albumin/Globulin Ratio TSH Free T4 Free T3 Urine Color Urine Appearance Urine pH Ur Specific [place] Urine Protein Urine Glucose (UA) Urine Ketones Urine Blood Urine Nitrite Urine Bilirubin Urine Urobilinogen Ur Leukocyte Esterase Urine WBC (Auto) Urine RBC (Auto) U Hyaline Cast (Auto) U Epithel Cells (Auto) Urine Bacteria (Auto) POC Ur Test Salicylates Urine Opiates Screen Ur Methadone, Qual Acetaminophen Urine Barbiturates Ur Phencyclidine (PCP) U Amphetamin/Meth Scrn MDMA (Ecstasy) Screen U Benzodiazepines Scrn Ur Cocaine Metabolite U Marijuana (THC) Screen U Marijuana THC Carboxy Drug Screen Comment Ethyl Alcohol mg/dL < 10.0 SARS-CoV-2, RNA, NAAT 03/03/23 03/03/23 03/03/23 08:12 08:34 08:34 WBC RBC Hgb Hct MCV MCH MCHC RDW Std Deviation RDW Coeff of Marissa Plt Count MPV Immature Gran % (Auto) Neut % (Auto) Lymph % (Auto) Cochran % (Auto) Eos % (Auto) Baso % (Auto) Neut # (Auto) Lymph # (Auto) Cochran # (Auto) Eos # (Auto) Baso # (Auto) Immature Gran # (Auto) Sodium Potassium Chloride Carbon Dioxide Anion Gap BUN Creatinine Est Cr Clr Drug Dosing Est GFR ( Amer) Est GFR (Non-Af Amer) BUN/Creatinine Ratio Glucose POC Glucose 136 H Calcium Total Bilirubin AST ALT Alkaline Phosphatase Total Protein Albumin Globulin Albumin/Globulin Ratio TSH Free T4 0.85 Free T3 3.72 Urine Color Urine Appearance Urine pH Ur Specific [place] Urine Protein Urine Glucose (UA) Urine Ketones Urine Blood Urine Nitrite Urine Bilirubin Urine Urobilinogen Ur Leukocyte Esterase Urine WBC (Auto) Urine RBC (Auto) U Hyaline Cast (Auto) U Epithel Cells (Auto) Urine Bacteria (Auto) POC Ur Test Salicylates Urine Opiates Screen Ur Methadone, Qual Acetaminophen Urine Barbiturates Ur Phencyclidine (PCP) U Amphetamin/Meth Scrn MDMA (Ecstasy) Screen U Benzodiazepines Scrn Ur Cocaine Metabolite U Marijuana (THC) Screen U Marijuana THC Carboxy Drug Screen Comment Ethyl Alcohol mg/dL SARS-CoV-2, RNA, NAAT 03/03/23 03/04/23 03/05/23 13:45 06:35 08:15 WBC RBC Hgb Hct MCV MCH MCHC RDW Std Deviation RDW Coeff of Marissa Plt Count MPV Immature Gran % (Auto) Neut % (Auto) Lymph % (Auto) Cochran % (Auto) Eos % (Auto) Baso % (Auto) Neut # (Auto) Lymph # (Auto) Cochran # (Auto) Eos # (Auto) Baso # (Auto) Immature Gran # (Auto) Sodium Potassium Chloride Carbon Dioxide Anion Gap BUN Creatinine Est Cr Clr Drug Dosing Est GFR ( Amer) Est GFR (Non-Af Amer) BUN/Creatinine Ratio Glucose POC Glucose 147 H 134 H 150 H Calcium Total Bilirubin AST ALT Alkaline Phosphatase Total Protein Albumin Globulin Albumin/Globulin Ratio TSH Free T4 Free T3 Urine Color Urine Appearance Urine pH Ur Specific [place] Urine Protein Urine Glucose (UA) Urine Ketones Urine Blood Urine Nitrite Urine Bilirubin Urine Urobilinogen Ur Leukocyte Esterase Urine WBC (Auto) Urine RBC (Auto) U Hyaline Cast (Auto) U Epithel Cells (Auto) Urine Bacteria (Auto) POC Ur Test Salicylates Urine Opiates Screen Ur Methadone, Qual Acetaminophen Urine Barbiturates Ur Phencyclidine (PCP) U Amphetamin/Meth Scrn MDMA (Ecstasy) Screen U Benzodiazepines Scrn Ur Cocaine Metabolite U Marijuana (THC) Screen U Marijuana THC Carboxy Drug Screen Comment Ethyl Alcohol mg/dL SARS-CoV-2, RNA, NAAT Hospital Course (1) Bipolar 2 disorder, major depressive episode: (2) Suicidal ideation: (3) Anxiety: (4) Cannabis use with anxiety disorder: (5) Non-suicidal self-harm as coping mechanism: (6) HTN (hypertension): (7) Diabetes mellitus: (8) TSH elevation: Free T3 and free T4 were normal, recommend follow-up with PCP (9) Obsessive compulsive disorder: Plan 03/04/2023: Continue current medications and tx plan. 03/03/2023: Continue current medications and tx plan. Provided [place] BPD screen and Y-BOCS to complete. 03/02/2023: The patient was admitted to the [facility] ([facility]) on q15 min checks (behavioral with suicide precautions) for safety. The patient will participate in group, recreational, and milieu therapies and will be offered additional individual and family sessions as clinically appropriate. * Increase fluoxetine to 60mg qd * Start clonidine 0.1mg qAM * Increase lamictal to 200mg qd * Free T4 level tomorrow Mental Health & Subst Abuse Tx Psychiatrist Name of Psychiatrist: Mari Muir - Dipti Shrestha PA-C Psychiatrist's Date Of Appointment With Psychiatric Provider: 03/16/23 Time of Appointment with Psychiatrist: 1:00 PM Psychiatric Appointment Comment: [address], [place] [address] Psychiatrist Release of Information: Obtained, Reviewed and Signed Therapist Name of Therapist: Paola Cosby Therapist's Date of Therapist Appointment: 03/15/23 Time of Therapist Appointment: 3:30 PM Therapy Appointment Comment: [address], [address], [place] [address] Therapist Release of Information: Obtained, Reviewed and Signed Medical Observer Name of Medical Observer: NA Post Discharge Appointments Primary Care Physician Name Of Family Doctor/PCP: FLORENTIN - CHICHO Hernandez Primary Care Date of Future Appointment with PCP: 03/10/23 Time of Appointment with PCP: 9:20 AM Provider Appointment Comment: [address], [place] [address] Primary Care Release of Information: Obtained, Reviewed and Signed Other #1: Name of Aftercare Appointment: [facility] Phone Number of Aftercare Appointment: Time of Aftercare Appointment: Call to discuss services and schedule intake. Aftercare Appointment Comment: [email or web address]/ Contact Information Discharge Discharge Address: [address], [facility] [place] [address] Discharge Plan Discharge Items Patient Disposition: Home - Self-Care Reason For Visit: SI WITH A PLAN Discharge Diagnosis: bipolar II disorder Activity: Resume your previous activity Non-emergency contact: Primary Care Provider, Psychiatrist and Therapist Call non-emergency contact if: you have any medication questions and your symptoms worsen Follow-up/Referrals: Chace Clark III, CRNP [Primary Care Provider] - Diet: Regular Addtl Attending Provider Instructions: SPECIAL CARE INSTRUCTIONS: 1. Follow through with your scheduled aftercare appointments. If unable to keep an appointment, please call to reschedule. 2. Take your medication only as prescribed. Medication should not be changed or stopped without the approval of your doctor. In the event of worsening symptoms or concerns about side effects, contact your doctor immediately. 3. Utilize new healthy coping skills, anger management skills, and stress management skills learned during your hospitalization. Journal feelings and process them with a support person. Identify stressors or situations that may result in relapse, deterioration or inappropriate behaviors and develop a plan to deal with those issues. 4. If your coping skills are ineffective and you are in crisis, contact your outpatient providers for direction. If unable to reach your providers, please call the [facility] CRISIS LINE AT , go to the [facility] walk-in center at [address], [address], [place], or go to the closest Emergency Room. 5. Avoid alcohol and un-prescribed drugs. 6. You have been provided with the Mental Health Advance Directives Pamphlet for your review. 7. Your condition is stable for discharge to outpatient level of care, but recovery is an ongoing process. Ifthoughts to harm yourself or others return, follow the safety plan developed during your stay. Planning for a safe return home includes securing weapons. Our treatment team recommends weaponsbe removed from the home until your outpatient provider reassesses your progress. In rare cases where the items themselvescannot be removed, guns and ammunitionshould be secured separatelyand keys stored by a reliable personoutside of the home. If you were admitted on an involuntary commitment, the police or other legal authorities may be involved in this process. AFTERCARE APPOINTMENTS: * Please call your insurance company prior to your scheduled appointment to confirm your aftercare providers are covered. Take your insurance information to your appointments. WHO TO CALL AND WHEN: Medical Emergencies: For questions or emergencies related to your hospital stay, please contact the Inpatient Behavioral Health Unit at [phone]. A bait painter is on-call 03/05 for the Behavioral Health Unit for emergencies At any time you feel your situation is an emergency, you may also call 911 immediately. Stand-Alone Forms: My [facility], Smoking Cessation Medications and DC Order Prescriptions: New clonidine HCl 0.1 mg Tablet 0.1 mg PO QAM Qty: 30 0RF fluoxetine 20 mg Capsule 60 mg PO QAM Qty: 90 0RF lamotrigine [Lamictal] 200 mg tablet 200 mg PO DAILY Qty: 30 0RF Continued (DME) lancets [OneTouch Delica Plus Lancet] 30 gauge [facility] See Rx Instructions .MEDSUPPLY Qty: 100 5RF Rx Instructions: Test blood glucose once daily Trulicity 0.75 mg/0.5 mL pen injector See Rx Instructions .ROUTE .COMPLEX Qty: 6 0RF Dose Instruction: inject 0.5 milliliters ( 0.75 milligrams ) subcutaneously every 7 days IN THE ABDOMEN THIGHS OR OUTER AREA OF UPPER ARM ROTATE INJECTION SITES Rx Instructions: inject 0.5 milliliters ( 0.75 milligrams ) subcutaneously every 7 days IN THE ABDOMEN THIGHS OR OUTER AREA OF UPPER ARM ROTATE INJECTION SITES Mirena 20 mcg/24 hours (5 yrs) 52 mg intrauterine device 1 device IU UD metformin 500 mg tablet extended release 24 hr 1,000 mg PO QAM (DME) blood-glucose meter [OneTouch Ultra2 Meter] Mis See Rx Instructions .MEDSUPPLY Qty: 1 0RF Rx Instructions: Use to test blood glucose twice daily (DME) blood sugar diagnostic Strip See Rx Instructions .MEDSUPPLY Qty: 100 5RF Rx Instructions: Test blood glucose twice daily lamotrigine 25 mg tablet 25 mg PO QAM lisinopril 5 mg tablet 5 mg PO QAM Discontinued fluoxetine 40 mg capsule 40 mg PO QAM lamotrigine 100 mg tablet 100 mg PO QAM Vraylar 3 mg capsule 3 mg Discharge Orders: Discharge Order (Routine); Ordered 03/05/23 Ordered By: Yessi Saldivar Admission Data Admit Date/Time: 03/02/23 02:48 Attending Provider: Suzie Brown Admit Provider: Suzie Brown Primary Care Provider: Chace Clark III Other Interventions: Discharge Summary Assessment (RN) Last Done: 03/05/23 12:15 PSY Interdisciplinary Discharge Planning Last Done: 03/05/23 10:26 Coding Level of Care Code 82291 D/C day mgmt > 30 min Diagnoses Bipolar 2 disorder, major depressive episode F31.81 Suicidal ideation R45.851 Anxiety F41.9 Cannabis use with anxiety disorder F12.980 Non-suicidal self-harm as coping mechanism R45.88 HTN (hypertension) I10 Diabetes mellitus E11.9 TSH elevation R79.89 Obsessive compulsive disorder F42.9
== END 2023-03-05 13:00 | disposition home or self-care (01) | DRG 885 ==
LOC: ED 22:44 → 3S 03-02 02:48
DX: Z79.899 Other long term (current) drug therapy; E11.9 Type 2 diabetes mellitus without complications; I10 Essential (primary) hypertension; F31.81 Bipolar II disorder; F42.9 Obsessive-compulsive disorder, unspecified; Z83.3 Family history of diabetes mellitus; F12.980 Cannabis use, unspecified with anxiety disorder; Z79.84 Long term (current) use of oral hypoglycemic drugs; E07.89 Other specified disorders of thyroid; Z88.0 Allergy status to penicillin